=== PATIENT | male | born 1940 | race Caucasian/White ===

== ENCOUNTER 2018-06-29 12:15 | Inpatient (IN) | payer MEDICARE, OTHER ==
[~2018-06-29] VITALS: Ht 170.2 cm; Wt 62.1 kg
[2018-06-29 12:20] VITALS: Ht 170.2 cm; Wt 62.1 kg
[2018-06-29] MEDS ORDERED: MEGL ×2 (13:08→13:09)
[2018-06-29] MEDS ORDERED: NORCO1 TA2 PO (13:09)
[2018-06-29] MEDS ORDERED: ZOF4 PO (13:10)
[2018-06-29 13:11] LABS: BASOPHIL % 0.2 % (0-2); PLATELET COUNT 151 x10^3mcL (130-400)
[2018-06-29 13:14] LABS: CARBON DIOXIDE 29.6 mmol/L (21-32); CHLORIDE SERUM 100 mmol/L (98-107); CREATININE SERUM 0.8 mg/dL (0.7-1.3); GLUCOSE SERUM 154 mg/dL (74-106); POTASSIUM SERUM 4.3 mmol/L (3.5-5.1); SODIUM SERUM 134 mmol/L (136-145)
[2018-06-29 13:20] LABS: ALKALINE PHOSPHATASE 109 U/L (46-116); ALT/SGPT 31 U/L (16-63); AST/SGOT 34 U/L (15-37); BILIRUBIN TOTAL 0.77 mg/dL (0.20-1.00); CHOLESTEROL 181 mg/dL (<200); LIPASE 119 IU/L (73-393); TOTAL PROTEIN, SERUM 6.3 g/dL (6.4-8.2); TRIGLYCERIDES 138 mg/dL (<150)
[2018-06-29 13:25] LABS: ALBUMIN 2.5 g/dL (3.4-5.0); CHOLESTEROL/HDL RATIO 5.3; HDL CHOLESTEROL 34 mg/dL (40-60)
[2018-06-29 13:28] LABS: RED CELL DISTRIBUTION WIDTH 14.6 % (11.5-14.5)
[2018-06-29 13:30] LABS: FREE T4 1.25 ng/dL (0.76-1.46); FREE THYROXINE INDEX 3.9 ug/dL (1.4-4.5); T4(THYROXINE) 9.9 ug/dL (4.7-13.3)
[2018-06-29 14:02] LABS: T3 TOTAL 1.03 ng/mL
[2018-06-29 16:10] LABS: PHOSPHOROUS 5.1 mg/dL (2.5-4.9)
[2018-06-29 16:37] VITALS: BP 154/76
[2018-06-29 20:08] LABS: microscopic required? NO
[2018-06-29 20:34] LABS: urine erythrocyte NEGATIVE (NEGATIVE)
[2018-06-29 21:15] VITALS: BP 127/73
[2018-06-30 05:41] VITALS: BP 142/85
[2018-06-30 09:04] LABS: BASOPHIL % 0.4 % (0-2); PLATELET COUNT 152 x10^3mcL (130-400)
[2018-06-30 09:07] LABS: RED CELL DISTRIBUTION WIDTH 14.8 % (11.5-14.5)
[2018-06-30 09:15] LABS: CALCIUM 7.9 mg/dL (8.5-10.1); CARBON DIOXIDE 25.4 mmol/L (21-32); CHLORIDE SERUM 106 mmol/L (98-107); CREATININE SERUM 0.7 mg/dL (0.7-1.3); GLUCOSE SERUM 116 mg/dL (74-106); MAGNESIUM 2.4 mg/dL (1.8-2.4); PHOSPHOROUS 3.6 mg/dL (2.5-4.9); SODIUM SERUM 139 mmol/L (136-145)
[2018-06-30 09:30] VITALS: BP 134/81
[2018-06-30 17:19] VITALS: BP 162/89
[2018-06-30 21:02] VITALS: BP 137/77
[2018-07-01 05:42] VITALS: BP 138/79
[2018-07-01 06:26] LABS: BASOPHIL % 0.4 % (0-2); PLATELET COUNT 156 x10^3mcL (130-400)
[2018-07-01 06:27] LABS: CARBON DIOXIDE 28.3 mmol/L (21-32); CHLORIDE SERUM 107 mmol/L (98-107); CREATININE SERUM 0.7 mg/dL (0.7-1.3); GLUCOSE SERUM 92 mg/dL (74-106); MAGNESIUM 2.2 mg/dL (1.8-2.4); PHOSPHOROUS 2.6 mg/dL (2.5-4.9); POTASSIUM SERUM 4.5 mmol/L (3.5-5.1); SODIUM SERUM 140 mmol/L (136-145)
[2018-07-01 06:28] LABS: RED CELL DISTRIBUTION WIDTH 15.6 % (11.5-14.5)
[2018-07-01 09:40] VITALS: BP 136/81
[2018-07-01] MEDS ORDERED: COLACE100 MG PO (14:34)
[2018-07-01] MEDS ORDERED: METAMUCIL FIBE3.4 GM PO (14:36)
[2018-07-01 16:12] VITALS: BP 136/81
== END 2018-07-01 20:41 | disposition home or self-care (01) | DRG 391 ==
LOC: ED 12:15 → MU 15:24
PROVIDERS: Family Medicine; Specialist; ADMIT Internal Medicine
DX: K59.00 Constipation, unspecified (principal); E43 Unspecified severe protein-calorie malnutrition; E87.1 Hypo-osmolality and hyponatremia; C16.9 Malignant neoplasm of stomach, unspecified; D63.0 Anemia in neoplastic disease; I48.91 Unspecified atrial fibrillation; E86.0 Dehydration; Z68.21 Body mass index [BMI] 21.0-21.9, adult; Z87.891 Personal history of nicotine dependence; Z85.46 Personal history of malignant neoplasm of prostate
CPT/HCPCS: 82962; 83880; 84439; J7030; Q0092

== ENCOUNTER 2018-09-29 20:21 | Inpatient (IN) | payer MEDICARE, OTHER ==
[~2018-09-29] VITALS: Ht 177.8 cm; Wt 45.8 kg
[~2018-09-29 20:21] MED LIST: COLACE100 MG PO; MEGL; METAMUCIL FIBE3.4 GM PO; NORCO1 TA2 PO; ZOF4 PO
[2018-09-29 21:18] LABS: BASOPHIL % 0.1 % (0-2); PLATELET COUNT 227 x10^3mcL (130-400)
[2018-09-29 21:25] LABS: RED CELL DISTRIBUTION WIDTH 16.6 % (11.5-14.5)
[2018-09-29 21:49] LABS: CALCIUM 8.8 mg/dL (8.5-10.1); CHLORIDE SERUM 100 mmol/L (98-107); CREATININE SERUM 0.6 mg/dL (0.7-1.3); GLUCOSE SERUM 79 mg/dL (74-106); POTASSIUM SERUM 3.8 mmol/L (3.5-5.1); SODIUM SERUM 135 mmol/L (136-145)
[2018-09-29 21:55] LABS: ALKALINE PHOSPHATASE 130 U/L (46-116); ALT/SGPT 12 U/L (16-63); AST/SGOT 16 U/L (15-37); BILIRUBIN TOTAL 0.7 mg/dL (0.20-1.00)
[2018-09-29 21:56] LABS: TOTAL PROTEIN, SERUM 5.7 g/dL (6.4-8.2)
[2018-09-29] MEDS ORDERED: DRONABINOL PO (22:17)
[2018-09-29 23:37] LABS: CHOLESTEROL/HDL RATIO 3.5; MAGNESIUM 1.7 mg/dL (1.8-2.4); PHOSPHOROUS 3.5 mg/dL (2.5-4.9)
[2018-09-29 23:47] LABS: FREE T4 1.29 ng/dL (0.76-1.46); FREE THYROXINE INDEX 2.5 ug/dL (1.4-4.5); T4(THYROXINE) 6.8 ug/dL (4.7-13.3)
[2018-09-30] VITALS (9 sets, daily range): BP systolic 88–98; BP diastolic 44–62
[2018-09-30 00:29] LABS: T3 TOTAL 0.46 ng/mL
[2018-09-30 02:09] LABS: microscopic required? YES; urine erythrocyte 2+ (NEGATIVE)
[2018-09-30 06:51] LABS: CALCIUM 7.9 mg/dL (8.5-10.1); CARBON DIOXIDE 26.1 mmol/L (21-32); CHLORIDE SERUM 104 mmol/L (98-107); CREATININE SERUM 0.6 mg/dL (0.7-1.3); GLUCOSE SERUM 70 mg/dL (74-106); MAGNESIUM 1.6 mg/dL (1.8-2.4); POTASSIUM SERUM 3.4 mmol/L (3.5-5.1); SODIUM SERUM 138 mmol/L (136-145)
[2018-09-30 07:40] LABS: PLATELET COUNT 222 x10^3mcL (130-400)
[2018-09-30 11:36] LABS: ATYPICAL LYMPH 0 %; BAND NEUTROPHIL 56 % (0-10); MONOCYTE 8 % (0-7); SEGMENTED NEUTROPHILS 24 % (37-75)
[2018-09-30 11:37] LABS: BASOPHIL 0 % (0-2); PLATELET MORPHOLOGY PLATELETS DECREASED
[2018-09-30 12:41] LABS: rbc morphology (normal/abnorm) ABNORMAL (NORMAL)
[2018-09-30 13:30] LABS: PATH REVIEW for HEMA NO
[2018-10-01 05:22] VITALS: BP 107/65
[2018-10-01 07:11] LABS: PLATELET COUNT 232 x10^3mcL (130-400)
[2018-10-01 07:18] LABS: CARBON DIOXIDE 24.3 mmol/L (21-32); CHLORIDE SERUM 106 mmol/L (98-107); CREATININE SERUM 0.5 mg/dL (0.7-1.3); GLUCOSE SERUM 92 mg/dL (74-106); MAGNESIUM 1.8 mg/dL (1.8-2.4); PHOSPHOROUS 2.1 mg/dL (2.5-4.9); POTASSIUM SERUM 3.2 mmol/L (3.5-5.1); SODIUM SERUM 139 mmol/L (136-145)
[2018-10-01 08:00] LABS: RED CELL DISTRIBUTION WIDTH 16.2 % (11.5-14.5)
[2018-10-01 09:42] VITALS: BP 105/58
[2018-10-01 12:52] VITALS: BP 110/61
[2018-10-01 13:08] LABS: BAND NEUTROPHIL 47 % (0-10); MONOCYTE 8 % (0-7); SEGMENTED NEUTROPHILS 35 % (37-75); rbc morphology (normal/abnorm) ABNORMAL (NORMAL)
[2018-10-01 13:09] LABS: PLATELET MORPHOLOGY PLATELETS NORMAL; burr cell (echinocyte) 1+; ovalocyte/elliptocyte 1+
[2018-10-01 17:09] VITALS: BP 116/76
[2018-10-01 21:13] VITALS: BP 114/63
[2018-10-02 06:17] LABS: BASOPHIL % 0.1 % (0-2); PLATELET COUNT 250 x10^3mcL (130-400)
[2018-10-02 06:24] VITALS: BP 124/79
[2018-10-02 06:26] LABS: CALCIUM 7.9 mg/dL (8.5-10.1); CARBON DIOXIDE 27.2 mmol/L (21-32); CHLORIDE SERUM 108 mmol/L (98-107); CREATININE SERUM 0.5 mg/dL (0.7-1.3); GLUCOSE SERUM 87 mg/dL (74-106); PHOSPHOROUS 1.8 mg/dL (2.5-4.9); POTASSIUM SERUM 3.1 mmol/L (3.5-5.1); SODIUM SERUM 143 mmol/L (136-145)
[2018-10-02 06:41] LABS: RED CELL DISTRIBUTION WIDTH 16.6 % (11.5-14.5)
[2018-10-02 08:21] VITALS: BP 141/79
[2018-10-02] MEDS ORDERED: KLOR-CON M2020 MEQ PO (09:44)
[2018-10-02] MEDS ORDERED: LEVAQUIN750 MG PO (09:44)
[2018-10-02 12:14] VITALS: BP 142/80
[2018-10-02] MEDS ORDERED: IPRATROPIUM BROM3 M2 IH (12:44)
[2018-10-02 13:13] VITALS: BP 142/80
[2018-10-02 17:06] VITALS: BP 117/71
[2018-10-02 20:36] VITALS: BP 119/63
[2018-10-03 05:28] VITALS: BP 123/76
[2018-10-03 07:39] VITALS: BP 126/72
[2018-10-03 12:11] VITALS: BP 149/56
[2018-10-03 12:45] VITALS: BP 135/79
[2018-10-03 16:46] VITALS: BP 123/74
[2018-10-03 20:18] VITALS: BP 131/78
[2018-10-04 05:13] VITALS: BP 135/81
[2018-10-04 06:03] LABS: BASOPHIL % 0.2 % (0-2); PLATELET COUNT 265 x10^3mcL (130-400)
[2018-10-04 06:30] LABS: CALCIUM 7.9 mg/dL (8.5-10.1); CARBON DIOXIDE 27.3 mmol/L (21-32); CHLORIDE SERUM 106 mmol/L (98-107); CREATININE SERUM 0.5 mg/dL (0.7-1.3); GLUCOSE SERUM 67 mg/dL (74-106); POTASSIUM SERUM 3.1 mmol/L (3.5-5.1); SODIUM SERUM 143 mmol/L (136-145)
[2018-10-04 07:29] LABS: RED CELL DISTRIBUTION WIDTH 16.6 % (11.5-14.5)
[2018-10-04 09:07] VITALS: BP 124/72
[2018-10-04 12:58] VITALS: BP 135/83
[2018-10-04 17:02] VITALS: BP 129/82
[2018-10-04 21:09] VITALS: BP 130/72
[2018-10-05 05:01] VITALS: BP 132/81
[2018-10-05 06:29] LABS: BASOPHIL % 0.3 % (0-2); PLATELET COUNT 280 x10^3mcL (130-400)
[2018-10-05 06:41] LABS: CALCIUM 7.7 mg/dL (8.5-10.1); CARBON DIOXIDE 27.9 mmol/L (21-32); CHLORIDE SERUM 105 mmol/L (98-107); CREATININE SERUM 0.5 mg/dL (0.7-1.3); GLUCOSE SERUM 83 mg/dL (74-106); POTASSIUM SERUM 3.2 mmol/L (3.5-5.1); SODIUM SERUM 144 mmol/L (136-145)
[2018-10-05 06:58] LABS: RED CELL DISTRIBUTION WIDTH 16.3 % (11.5-14.5)
[2018-10-05 09:18] VITALS: BP 144/84
[2018-10-05 12:40] VITALS: BP 123/80
[2018-10-05 18:46] VITALS: BP 135/81
[2018-10-05 21:17] VITALS: BP 125/81
[2018-10-06 06:05] VITALS: BP 136/85
[2018-10-06 09:17] VITALS: BP 119/73
[2018-10-06 13:02] VITALS: BP 132/73
[2018-10-06 16:25] VITALS: Ht 177.8 cm; Wt 45.8 kg
[2018-10-06 18:11] VITALS: BP 128/72
[2018-10-06 20:50] VITALS: BP 122/62
[2018-10-07 05:48] VITALS: BP 129/82
[2018-10-07 06:29] LABS: ALKALINE PHOSPHATASE 76 U/L (46-116); ALT/SGPT 8 U/L (16-63); AST/SGOT 13 U/L (15-37); BILIRUBIN TOTAL 0.3 mg/dL (0.20-1.00); CALCIUM 7.5 mg/dL (8.5-10.1); CARBON DIOXIDE 35.7 mmol/L (21-32); CHLORIDE SERUM 103 mmol/L (98-107); CREATININE SERUM 0.4 mg/dL (0.7-1.3); GLUCOSE SERUM 100 mg/dL (74-106); POTASSIUM SERUM 3.1 mmol/L (3.5-5.1); SODIUM SERUM 142 mmol/L (136-145)
[2018-10-07 06:33] LABS: ALBUMIN 1.6 g/dL (3.4-5.0); TOTAL PROTEIN, SERUM 4.4 g/dL (6.4-8.2)
[2018-10-07 08:03] VITALS: BP 119/77
[2018-10-07 08:58] LABS: BASOPHIL % 0.3 % (0-2); PLATELET COUNT 257 x10^3mcL (130-400); RED CELL DISTRIBUTION WIDTH 16.9 % (11.5-14.5)
[2018-10-07 12:04] VITALS: BP 111/68
[2018-10-07 16:47] VITALS: BP 120/75
[2018-10-07 20:45] VITALS: BP 123/73
[2018-10-08 05:20] VITALS: BP 131/83
[2018-10-08 07:02] LABS: CALCIUM 7.9 mg/dL (8.5-10.1); CARBON DIOXIDE 31.1 mmol/L (21-32); CHLORIDE SERUM 104 mmol/L (98-107); CREATININE SERUM 0.3 mg/dL (0.7-1.3); GLUCOSE SERUM 102 mg/dL (74-106); POTASSIUM SERUM 4.1 mmol/L (3.5-5.1); SODIUM SERUM 140 mmol/L (136-145)
[2018-10-08 08:16] VITALS: BP 113/71
[2018-10-08 08:42] LABS: BASOPHIL % 0.2 % (0-2); PLATELET COUNT 240 x10^3mcL (130-400); RED CELL DISTRIBUTION WIDTH 16.9 % (11.5-14.5)
[2018-10-08 12:11] VITALS: BP 110/68
[2018-10-08 16:45] VITALS: BP 123/75
[2018-10-08 21:02] VITALS: BP 120/72
[2018-10-09 05:19] VITALS: BP 105/65
[2018-10-09 06:41] LABS: CALCIUM 7.8 mg/dL (8.5-10.1); CARBON DIOXIDE 33.3 mmol/L (21-32); CHLORIDE SERUM 103 mmol/L (98-107); CREATININE SERUM 0.4 mg/dL (0.7-1.3); GLUCOSE SERUM 101 mg/dL (74-106); POTASSIUM SERUM 4.3 mmol/L (3.5-5.1); SODIUM SERUM 137 mmol/L (136-145)
[2018-10-09 08:02] LABS: BASOPHIL % 0.4 % (0-2); PLATELET COUNT 239 x10^3mcL (130-400)
[2018-10-09 12:42] VITALS: BP 101/58
[2018-10-09 13:52] VITALS: BP 121/72
[2018-10-09 17:09] VITALS: BP 93/56
[2018-10-09 20:26] VITALS: BP 104/56
[2018-10-10 05:36] VITALS: BP 146/90
[2018-10-10 06:47] LABS: CALCIUM 8.3 mg/dL (8.5-10.1); CARBON DIOXIDE 29.2 mmol/L (21-32); CHLORIDE SERUM 102 mmol/L (98-107); CREATININE SERUM 0.5 mg/dL (0.7-1.3); GLUCOSE SERUM 107 mg/dL (74-106); MAGNESIUM 2.2 mg/dL (1.8-2.4); POTASSIUM SERUM 4.2 mmol/L (3.5-5.1); SODIUM SERUM 134 mmol/L (136-145)
[2018-10-10 06:58] LABS: BASOPHIL % 0.4 % (0-2); PLATELET COUNT 254 x10^3mcL (130-400); RED CELL DISTRIBUTION WIDTH 16.9 % (11.5-14.5)
[2018-10-10 09:09] VITALS: BP 140/80
[2018-10-10 13:02] VITALS: BP 124/80
[2018-10-10 18:38] VITALS: BP 98/56
[2018-10-10 19:20] VITALS: BP 98/56
[2018-10-10 20:45] VITALS: BP 121/67
[2018-10-11 05:05] VITALS: BP 143/66
[2018-10-11 08:16] VITALS: BP 126/66
[2018-10-11 10:40] LABS: CARBON DIOXIDE 27.7 mmol/L (21-32); CHLORIDE SERUM 103 mmol/L (98-107); CREATININE SERUM 0.5 mg/dL (0.7-1.3); GLUCOSE SERUM 105 mg/dL (74-106); POTASSIUM SERUM 4.2 mmol/L (3.5-5.1); SODIUM SERUM 135 mmol/L (136-145)
[2018-10-11 11:01] VITALS: BP 126/66
[2018-10-11 11:11] LABS: BASOPHIL % 0.4 % (0-2); PLATELET COUNT 261 x10^3mcL (130-400)
== END 2018-10-11 12:50 | DRG 871 ==
LOC: ED 20:21 → DU 22:43 → EDBEDREQ 22:58 → DU 23:37
PROVIDERS: Emergency Medicine; Family Medicine; ADMIT Internal Medicine
PROC: 0DJ08ZZ Inspection of Upper Intestinal Tract, Via Natural or Artificial Opening Endoscopic (ICD-10-PCS; 2018-10-05)
PROC: 0DHA3UZ Insertion of Feeding Device into Jejunum, Percutaneous Approach (ICD-10-PCS; principal; 2018-10-06)
DX: A41.9 Sepsis, unspecified organism (principal); J69.0 Pneumonitis due to inhalation of food and vomit; N17.0 Acute kidney failure with tubular necrosis; E43 Unspecified severe protein-calorie malnutrition; C16.2 Malignant neoplasm of body of stomach; Z68.1 Body mass index [BMI] 19.9 or less, adult; E87.2 Acidosis; I47.1 Supraventricular tachycardia; R64 Cachexia; E87.6 Hypokalemia; E83.39 Other disorders of phosphorus metabolism; E83.42 Hypomagnesemia; I10 Essential (primary) hypertension; Z92.3 Personal history of irradiation; Z79.899 Other long term (current) drug therapy; Z85.46 Personal history of malignant neoplasm of prostate
CPT/HCPCS: 36600; 43235; 82962; 84439; 92526-GN; 92610; 97110-GP; 97530-GP; J0330; J1200; J1610; J1644; J1940; J1956; J2060; J2250; J2270; J2310; J2405; J2543; J2704; J2710; J2765; J3010; J3475; J3480; J3490; J7030; J7050; J7131; J7620; Q0092; Q9967

== ENCOUNTER 2018-11-04 20:33 | Inpatient (IN) | payer MEDICARE, OTHER ==
[~2018-11-04] VITALS: Ht 170.2 cm; Wt 42.3 kg
[~2018-11-04 20:33] MED LIST changes: +DRONABINOL PO; +IPRATROPIUM BROM3 M2 IH; +KLOR-CON M2020 MEQ PO; +LEVAQUIN750 MG PO
--- NOTE | 2018-11-04 20:58 | NUR ---
PATIENT WAS BROUGHT IN BY THE AMBULANCE WITH COMPLAIN OF G-TUBE BEING CLOGGED. FAMILY REPORTS ABDOMINAL PAIN , AND HISTORY OF STOMACH CANCER.PATIENT WAS SEEN BY .
[2018-11-04 21:05] LABS: BASOPHIL % 0.3 % (0-2); PLATELET COUNT 431 x10^3mcL (130-400); RED CELL DISTRIBUTION WIDTH 18.1 % (11.5-14.5)
[2018-11-04 21:16] LABS: CALCIUM 8.7 mg/dL (8.5-10.1); CARBON DIOXIDE 31.7 mmol/L (21-32); CHLORIDE SERUM 96 mmol/L (98-107); CREATININE SERUM 0.7 mg/dL (0.7-1.3); GLUCOSE SERUM 103 mg/dL (74-106); POTASSIUM SERUM 5.3 mmol/L (3.5-5.1); SODIUM SERUM 135 mmol/L (136-145)
[2018-11-04 21:20] LABS: ALKALINE PHOSPHATASE 110 U/L (46-116); ALT/SGPT 22 U/L (16-63); AST/SGOT 15 U/L (15-37); BILIRUBIN TOTAL 0.47 mg/dL (0.20-1.00); LIPASE 39 IU/L (73-393); TOTAL PROTEIN, SERUM 6.6 g/dL (6.4-8.2)
[2018-11-04 21:21] LABS: ALBUMIN 1.9 g/dL (3.4-5.0)
--- NOTE | 2018-11-04 21:43 | NUR ---
SALINE LOCK INSERTED. FLUID BOLUS IS INFUSING.TRIED TO FLUSH GT TUBE, CANNOT ASPIRARTE, TUDE DOES NOT FLUSH.
--- NOTE | 2018-11-04 22:01 | NUR ---
PATIENT WENT FOR CT SCAN
--- NOTE | 2018-11-04 22:30 | NUR ---
CT CALL THAT THE PATIENT IS VOMITING. CT WAS DONE. PATIENT SEEN VOMITING GREEN OFFENSIVE SMELLING FLUID. MD AWARE.
--- NOTE | 2018-11-04 22:33 | NUR ---
PATIENT WENT BACK TO THE ROOM FROM CT SCAN.
--- NOTE | 2018-11-04 23:00 | NUR ---
PATIENT IS GAGING, HAS A RAPID HEART RATE, EKG SHOWING SVT. ADENOSINE 6 IVP. HEART RATE WENT TO 100. PATIENT IS A/O TALKING.
[2018-11-04] MEDS ORDERED: AMBIEN10 MG PO (23:30)
[2018-11-04] MEDS ORDERED: BACTRIM DS1 TAB PO (23:31)
[2018-11-04] MEDS ORDERED: DULCOLAX10 M1 (23:32)
[2018-11-04] MEDS ORDERED: FLEET ENEMA135 ML (23:32)
--- NOTE | 2018-11-04 23:33 | NUR ---
PT BROUGHT TO 2B PT IN POSSIBLE SVT. PT GIVEN ADENOSINE 6MG 2320. PT TOLERATED WELL. HR93. WAS AT BEDSIDE. VSS. WILL CONTINUE TO MONITOR.
[2018-11-04] MEDS ORDERED: GLYCOPYRROLATE1 M1 PO (23:34)
[2018-11-04] MEDS ORDERED: GOOD NEIGH1200 MG/15 GT (23:36)
[2018-11-04] MEDS ORDERED: [UNRECOGNIZED DRUG - OTHER] (23:38)
--- NOTE | 2018-11-04 23:50 | NUR ---
REPORT WAS GIVEN TO PRETTY. PATIENT TRANSPORTED TO ROOM 223B. SALINE INFUSING ORDERED.
[2018-11-05] VITALS (8 sets, daily range): BP systolic 104–136; BP diastolic 48–72
--- NOTE | 2018-11-05 00:15 | NUR ---
RECEIVED PT FROM ED VIA [facility], CAME IN DUE TO CLOGGED J-TUBE. AAOX3. DENIES HEADACHE/DIZZINESS. ABLE TO FOLLOW COMMANDS. NO SOB NOTED, LUNG SOUNDS DIMINISHED ON AUSCULTATION, O2 CRV=514% ON 2LPM/NC. W/ PRODUCTIVE COUGH, ABLE TO EXPECTORATE SMALL AMOUNT OF YELLOW PHLEGM. DENIES CHEST PAIN/PRESSURE, SR W/ PAC'S. DENIES ABDOMINAL DISCOMFORT. W/ ICELANDIC 20 J-TUBE,CLAMPED, SAMUEL-WOUND IS PINK. W/ ECCHYMOSIS ON LUE AND LEFT CHEST, BREAST PULLER. W/ BROWN DISCOLORATION ON THE SACRAL-COCCYGEAL AREA, OPTIFOAM IN PLACE. W/ PORTACATH ON THE RIGHT UPPER CHEST, NOT ACCESSED AT THIS TIME. ON AIR MATTRESS. SIDE RAILS UPX2. CALL LIGHT ON REACH. RECEIVED PT FROM ED W/ NS AND MAGNESIUM SULFATE ONGOING. PT'S SON AT BEDSIDE. ENDORSED TO PRIMARY NURSE PRETTY FOR CONTINUITY OF CARE
[2018-11-05 00:26] LABS: microscopic required? NO
[2018-11-05 00:53] LABS: urine erythrocyte NEGATIVE (NEGATIVE)
--- NOTE | 2018-11-05 01:50 | NUR ---
J TUBE SITE PINK AND PAINFUL TRY TO FLUSH THE J TUBE NO WORKING,CLOG,WILL CONTUINUE TO MONITOR.
--- NOTE | 2018-11-05 02:07 | NUR ---
PT SLEEPING SOUNDLY AT THIS TIME,WILL CONTINUE TO MONITOR.
[2018-11-05 02:11] LABS: CHOLESTEROL/HDL RATIO 3.7; PHOSPHOROUS 4.4 mg/dL (2.5-4.9)
--- NOTE | 2018-11-05 02:16 | NUR ---
PT RESTING AT THIS TIME,HR TO 130 AND AND IN AND OUT JUCTIONAL AND NSR WITH PACS NO CHEST PAIN AT THIS TIME,WILL CONTINUE TO MONITOR.
--- NOTE | 2018-11-05 02:33 | NUR ---
MADE DR CUMMINGS AWARE OF PATIENT HR ST 130,AND GOES TO NSR PACS NO CHEST PAIN AT THIS TIME.
--- NOTE | 2018-11-05 06:27 | NUR ---
PT HAD A RESTING NIGHT NO CHANGE AT THIS TIME,CALL LIGHT EASY REACHED AND WILL CONTINUE TO MONITOR.
[2018-11-05 06:58] LABS: BASOPHIL % 0.3 % (0-2)
[2018-11-05 07:05] LABS: PLATELET COUNT 409 x10^3mcL (130-400); RED CELL DISTRIBUTION WIDTH 18.1 % (11.5-14.5)
[2018-11-05 07:08] LABS: CALCIUM 8.4 mg/dL (8.5-10.1); CARBON DIOXIDE 27.3 mmol/L (21-32); CHLORIDE SERUM 102 mmol/L (98-107); CREATININE SERUM 0.6 mg/dL (0.7-1.3); GLUCOSE SERUM 99 mg/dL (74-106); POTASSIUM SERUM 4.5 mmol/L (3.5-5.1); SODIUM SERUM 137 mmol/L (136-145)
--- NOTE | 2018-11-05 07:30 | NUR ---
PT ENDORSE TO ME THIS MORNING. LAYING IN BED RESTING. FAMILY MEMBER AT BEDSIDE. ITALIAN SPKING. BREATHING EVEN AND UNLABORED ON 2L NC, LUNGS DIM. NO ACUTE RESP DISTRESS OR SOB NOTED. TELE 28 SR NOTED AT THIS TIME, HR 86, DENIES ANY CP OR PRESSURE. J TUBE IN PLACE, CURRENTLY CLAMPED AND NOT IN USE. PT IS NPO PENDING GI CONSULT. VOIDS FREELY. GEN WEAKNESS. SKIN AROUND J TUBE PINK NOTED WITH BROWN DISCOLORATION. IV TO THE LAC INTACT AND PATENT, NO RENDESS OR SWELLING NOTED. WILL CONTINUE TO MONITOR.
--- NOTE | 2018-11-05 08:34 | NUR ---
DR. LINTON AT BEDSIDE TALKING TO FAMILY AND PT. PT C/O NV, MEDICATED PER EMAR. WILL CONTINUE TO MONITOR.
--- NOTE | 2018-11-05 09:17 | NUR ---
GI LAB HERE TO [facility]UT[facility] ARCHITECT CONSULTANT PT. CURRENT VS 115/66 MAP 88, 85 HR, RESP 16, TEMP 98.4 DENIES ANY CP OR PRESSURE. HEPLOCKED IV TO THE LAC INTACT AND PATENT. WILL CONTINUE TO MONITOR PT ONCE RETURNS FROM PROCEDURE.
--- NOTE | 2018-11-05 11:45 | NUR ---
PT BACK FROM GI LAB/ REPORT GIVEN TO ME BY RN CYNTHIA. CURRENT VS: 101/61 MAP 79, HR 90, RESP 17, 100% 2L NC NO ACUTE RESP DISTRESS OR SOB NOTED. RECONNECTED BACK ON TELE 28, DENIES ANY CP OR PRESSURE. IV TO THE LAC INTACT AND PATENT, INFUSING AT 100ML HR. FAMILY AT BEDSIDE.
--- NOTE | 2018-11-05 13:00 | NUR ---
STARTED J TUBE FEEDING AT 1300 AT 30ML/HR INITAL RATE. PT TOLERATING WELL. WILL CONTINUE TO MONITOR.
--- NOTE | 2018-11-05 17:00 | NUR ---
AT 1700 REMOVED PT OFF 02, SAT AT 92%, MARIAELENA 02 SAT 30 MIN LATER WAS 89% - 90%, PT NOW BACK ON 1 L NC SATING AT 94%. WILL CONTINUE TO MONITOR.
--- NOTE | 2018-11-05 18:41 | NUR ---
NO ACUTE CHANGES AT THIS TIME. NO ACUTE RESP DISTRESS OR SOB NOTED. REMAINS ON 1L NC SATING 94% BREATHING EVEN AND UNLABORED. J TUBE CURRENTLY AT 30ML/HR TOLERATING WELL/ DENIES ANY N/V , MEDICATED PER EAMR. IV TO THE LAC INTACT AND PATENT. WILL ENDORSE TO INCOMING RN.
--- NOTE | 2018-11-05 19:15 | NUR ---
RECEIVED PT FROM PREVIOUS SHIFT NURSE. PT AOX4. DENIES AVELAR/DIZZINESS. TELE #28, NSR WITH PACS. DENIES CP/PRESSURE. DENIES SOB/DIFFICULTY BREATHING, ON 1L NC. J TUBE IN PLACE CONNECTED TO JEVITY INFUSING AT 30ML/H. IV TO LAC, INTACT AND PATENT. BED IN LOWEST POSITION. CALL LIGHT WITHIN REACH. WILL CONTINUE TO MONITOR.
--- NOTE | 2018-11-05 21:45 | NUR ---
LARGE AMOUNT OF YELLOW BILE LOOKING DRAINAGE NOTED AT J TUBE SITE, DSG CHANGED. DR. LINTON NOTIFIED.
--- NOTE | 2018-11-06 03:30 | NUR ---
PT RESTING IN BED. RR EVEN AND UNLABORED. IN NO ACUTE DISTRESS. CALL LIGHT WITHIN REACH. BED IN LOWEST POSITION. WILL CONTINUE TO MONITOR.
--- NOTE | 2018-11-06 05:12 | NUR ---
J TUBE DSG HEAVILY SATURATED WITH YELLOW BILE LIKE DRAINAGE AND WHAT APPEARS TO BE TUBE FEED. DSG CHANGED.
[2018-11-06 05:44] VITALS: BP 158/74
[2018-11-06 06:29] LABS: BASOPHIL % 0.3 % (0-2); PLATELET COUNT 390 x10^3mcL (130-400)
[2018-11-06 06:54] LABS: RED CELL DISTRIBUTION WIDTH 17.5 % (11.5-14.5)
[2018-11-06 06:58] LABS: CALCIUM 8.3 mg/dL (8.5-10.1); CARBON DIOXIDE 30.1 mmol/L (21-32); CHLORIDE SERUM 106 mmol/L (98-107); CREATININE SERUM 0.5 mg/dL (0.7-1.3); GLUCOSE SERUM 114 mg/dL (74-106); MAGNESIUM 2.3 mg/dL (1.8-2.4); PHOSPHOROUS 3.3 mg/dL (2.5-4.9); POTASSIUM SERUM 4.1 mmol/L (3.5-5.1); SODIUM SERUM 141 mmol/L (136-145)
--- NOTE | 2018-11-06 07:45 | NUR ---
PATIENT RESTING IN BED, NO ACUTE DISTRESS NOTED. TELE MONITOR IN PLACE. PATIENT DENEIS AVELAR, DIZZINESS, CHEST PAIN. PATIENT ON 1L NC, DENIES SOB. JTUBE DRESSING IS SATURATED TO LUQ, DRESSING CHANGED AT THIS TIME. PATIENT TOLERATING TUBE FEEDINGS, JEVITY 1.2 INFUSING AT 30ML/HR WITH FWF 30ML Q6. WILL ADVANCE TUBE FEEDING AT 1300. BOWEL SOUND HYPOACTIVE, PATIENT IS BURPING AND PASSING GAS. PATIENT ON AIR MATRESS. NS IV TO LAC INFUSING AT 100ML/HR, IV SITE CDI & PATENT, NO S/S OF INFILTRATION. CALL LIGHT WITHIN REACH, BED IN LOW POSITION, WILL CONTINUE TO MONITOR FOR CHANGES.
[2018-11-06 09:42] VITALS: BP 113/71
--- NOTE | 2018-11-06 12:00 | NUR ---
DRAINAGE WAS NOTED AROUND THE JTUBE, PROVIDED PATIENT WITH A DRESSING CHANGE. WILL CONTINUETO MONITOR AND CHANGE NEEDED, DR LINTON AWARE
[2018-11-06 13:07] VITALS: BP 99/57
--- NOTE | 2018-11-06 13:30 | NUR ---
PATIENT TOLERATING TUBE FEEDINGS, ADVANCED TUBE FEEDING ( JEVITY 1.2) TO 40ML/HR. WILL CONTINUE TO MONITOR FOR CHANGES.
--- NOTE | 2018-11-06 14:33 | NUR ---
Initial Nutrition Assessment: 223T/B FERMIN KHAN IA HR Dx: J tube malfunction , atrial tachycardia PMHx: Gastric cancer, Prostate cancer s/p radiation currently in remission PSHx: Hernia Repair Labs: BG 114H, CREAT 0.5, CA 8.3L Meds: Ambien, citrate of magnesia, Lopressor, zosyn Diet: TF Jevity 1.2 @ 30ml/hr, goal 60ml/hr, freq of adv Q12H, FWF 30ml Q6H PO Intake: 450 ml Ht: 170.18 cm (67") Wt: 42.8 kg (94#) BMI: 14.8 kg/m2 Bed scale: 92# IBW: 148# (67 kg) %IBW: 63 UBW: 200# Age: 78/M Food Allergies: NKFA Skin: brown discoloration to sacrum, chest ecchymosis, port A cath to chest Eron: 16 Edema: none GI: Last BM: 11/04 Trigger: appears underweight/malnourished Per H&P, Pt is a 78 year old male with PMH of gastric cancer diagnosed in January 2018 and prostate cancer in remission who was brought to the ER by ambulance from home with complaints of abdominal pain and possible G-tube malfunction. Patient states that his G-tube has been clogged since this morning and he has been unable to receive anything through it. RDN Visit (11/06): Pt was sleeping. Pt's son was at bedside. Jevity 1.2 was increased from 30ml/hr to 40ml/hr. Pt's son had concerns about pt's cachectic appearance and that despite of continuing tube feedings, pt;s weight has not increased. Concept of cancer cachexia was explained and he was reassured that pt's tube feeding goal rate will be meeting >75% of his estimated calorie and protein needs. Problem with: N/V/D/C: yes Problems with: Chewing/Swallowing: yes Current appetite: poor Recent wt change: 6# in one month %wt change: 6% Vitamin/Supplement use: none Special diet at home: pt on tube feeding Physical activity: not possible as pt is cachectic and emaciated Nutrition education given: not appropriate at this time as pt is on tube feeding. Food-drug interactions: Lopressor- avoid licorice Education given: no as pt is tube feeding dependent Estimated Nutritional Needs Based on actual body weight 42.8 kg Energy: 4877-8912 kcal/d (35-40 kcal/kg)- weight gain Protein: 51-64 g/d (1.2-1.5g/kg)- preserve LBM Fluid: 3883-8948 ml/d (1 ml/kcal) or per doctor Nutrition Diagnosis 1. 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 Recommend continuing Jevity 1.2 @ goal rate of 60ml/hr. FWF 30ml Q6H. This provides 1728 kcal and 80g protein. This meets 100% of calorie and protein needs of the patient. Monitor/Evaluate Goal: PO intake at least 75% of estimated needs Monitor: PO intake, Labs, GI function F/U in 2-3 days as high risk 11/08-
--- NOTE | 2018-11-06 16:15 | NUR ---
PT DRESSING TO JTUBE WAS SATURATED, PROVIDED PATIENT WITH DRESSING CHANGE AT THIS TIME. PATIENT STATES HE HAS MILD PAIN 07/12 BUT TOLERABLE. EDUCATED PATIENT ON PAIN MANAGEMENT. WILL CONTINUE TO MONITOR FOR CHANGES. CALL LIGHT WITHIN REACH, BED IN LOW POSITION.
[2018-11-06 17:11] VITALS: BP 143/60
--- NOTE | 2018-11-06 18:26 | NUR ---
PATIENT RESTING IN BED, FAMILY AT BEDSIDE. NO ACUTE DISTRESS NOTED AT THIS TIME. TELE MONITOR IN PLACE. PATIENT ON 1L NC, DENIES SOB. JTUBE DRESSING CDI, JEVITY 1.2 INFUSING AT 40ML/HR, PATIENT TOLERATING TUBE FEEDINGS. PATIENT ON AIR MATRESS, REPOSITION Q2HR. DENIES PAIN AT THIS TIME. NS IV INFUSING AT 30ML/HR TO LAC, IV SITE CDI& PATENT, NO S/S OF INFILTRATION. CALL LIGHT WITHIN REACH, BED IN LOW POSITION. WILL ENDORSE REPORT TO NIGHT NURSE.
--- NOTE | 2018-11-06 19:58 | NUR ---
Awake and verbally responsive. No respiratory distress noted on room air. Denies pain. Denies n/v. Jtube feeding Jevity 1.2 ongoing @ 40ml/hr. Will advance rate by 10ml every 12hr to reach the goal of 60ml/hr. Jtube site leaking with formula. aware per morning RN. Will cont.to monitor and change dressing prn. On air mattress. Family member visiting.
[2018-11-06 21:48] VITALS: BP 112/70
--- NOTE | 2018-11-07 01:00 | NUR ---
Advanced tube feeding rate to 50ml/hr. Will cont.to monitor.
--- NOTE | 2018-11-07 04:00 | NUR ---
Afebrile. No significant change in condition noted. No cues of pain. JTube feeding tolerated well. No n/v noted. No residual noted. Site still with leakage, drain gauze changed. Erythema noted to surrounding site. Kept skin clean and dry. Kept comfortable. In no apparent distress.
[2018-11-07 06:27] VITALS: BP 118/74
[2018-11-07 06:55] LABS: BASOPHIL % 0.6 % (0-2); PLATELET COUNT 407 x10^3mcL (130-400); RED CELL DISTRIBUTION WIDTH 17.7 % (11.5-14.5)
[2018-11-07 07:06] LABS: CALCIUM 8.1 mg/dL (8.5-10.1); CARBON DIOXIDE 35.6 mmol/L (21-32); CHLORIDE SERUM 106 mmol/L (98-107); CREATININE SERUM 0.5 mg/dL (0.7-1.3); GLUCOSE SERUM 111 mg/dL (74-106); MAGNESIUM 2.3 mg/dL (1.8-2.4); PHOSPHOROUS 2.5 mg/dL (2.5-4.9); POTASSIUM SERUM 4.1 mmol/L (3.5-5.1); SODIUM SERUM 142 mmol/L (136-145)
--- NOTE | 2018-11-07 07:50 | NUR ---
PATIENT RESTING IN BED, NO ACUTE DISTRESS NOTED. PATIENT DENIES SOB, ON 1L NC. TELE MONITOR IN PLACE. PATIENT DENIES N/V AT THIS TIME. TUBE FEEDING (JEVITY 1.2) INFUSING AT 50 ML/HR. GENERALIZED WEAKNESS NOTED. NS IV INFUSING AT 30 ML/HR TO RFA. CALL LIGHT WITHIN REACH, BED IN LOW POSITION, WILL CONTINUE TO MONITOR PATIENT.
[2018-11-07 08:20] VITALS: BP 109/70
--- NOTE | 2018-11-07 09:00 | NUR ---
PATIENT WAS C/O NAUSEA, MEDICATED PATIENT WITH ZOFRAN. WILL CONTINUE TO MONITOR PATEINT. CALL LIGHT WITHIN REACH, BED IN LOW POSITION.
[2018-11-07 12:54] VITALS: BP 118/72
--- NOTE | 2018-11-07 13:00 | NUR ---
INCREASED PATIENT TUBE FEEDING AT THIS TIME, PATIENT MET GOAL OF 60ML/HR. WILL MONITOR FOR CHANGES. PATIENT DENIES N/V AT THIS TIME. CALL LIGHT WITHIN REACH, BED IN LOW POSITION.
--- NOTE | 2018-11-07 14:00 | NUR ---
PATIENT DRESSING AROUND J TUBE WAS SOILED, PROVIDED PATIENT WITH DRESSING CHANGE. WILL CONTINUE TO MONITOR.
[2018-11-07 17:00] VITALS: BP 131/76
--- NOTE | 2018-11-07 18:00 | NUR ---
PATIENT RESTING IN BED, FAMILY AT BEDSIDE. NO ACUTE DISTRESS NOTED. PATIENT STATES SOME RELIEF OF THE NAUSEA. PATIENT DENIES PAIN. DENIES SOB, PT ON ROOM AIR. TUBE FEEDING INFUSING (JEVITY 1.2) INFUSING AT 60ML/HR, PATIENT TOLERATING TUBE FEEDING. ZOSYN INFUSING AT THIS TIME AT 100ML/HR TO RFA, IV SITE CDI, NO S/S OF INFILTRATION. CALL LIGHT WITHIN REACH, BED IN LOW POSITION. WILL ENDORSE REPORT TO NIGHT NURSE.
--- NOTE | 2018-11-07 19:53 | NUR ---
RECEIVED PATIENT IN BED AWAKE,ALERT AND ORIENTED X4 WITH NO C/O PAIN AND DISCOMFORT AT THIS TIME. BREATHING EASY AND NONLABOR SATTING AT 98% RA. TELE#28 NSR/ST ON MONITOR. ABDOMEN ROUND SOFT AND NONTENDER WITH ACTIVE BS. J TUBE TO LEFT UPPER QUADRANT IN PLACEWITH JEVITY 1.2 FEEDING AT 60ML/HR WITH FWF OF 60ML Q 6HRS. IV TO RFA INTACT AND INFUSING WELL.WILL CONTINUE TO MONITOR.
[2018-11-07 21:06] VITALS: BP 125/73
--- NOTE | 2018-11-08 02:46 | NUR ---
APPEARS SLEEPING THIS TIME BREATHING EASY AND NONLABOR. WILL CONTINUE TO MONITOR.
[2018-11-08 05:32] VITALS: BP 116/75
--- NOTE | 2018-11-08 05:52 | NUR ---
NO SIGNIFICANT CHANGES IN CONDITION NOTED. CHECKED AT INTERVALS FOR NEEDS AND SAFETY. ALL NEEDS ATTENDED.
[2018-11-08 07:15] LABS: BASOPHIL % 0.6 % (0-2); PLATELET COUNT 384 x10^3mcL (130-400)
[2018-11-08 07:18] LABS: RED CELL DISTRIBUTION WIDTH 17.6 % (11.5-14.5)
[2018-11-08 07:20] LABS: CALCIUM 8.2 mg/dL (8.5-10.1); CARBON DIOXIDE 34.4 mmol/L (21-32); CHLORIDE SERUM 104 mmol/L (98-107); CREATININE SERUM 0.5 mg/dL (0.7-1.3); GLUCOSE SERUM 87 mg/dL (74-106); MAGNESIUM 2.4 mg/dL (1.8-2.4); PHOSPHOROUS 3.1 mg/dL (2.5-4.9); POTASSIUM SERUM 4.3 mmol/L (3.5-5.1); SODIUM SERUM 141 mmol/L (136-145)
--- NOTE | 2018-11-08 07:30 | NUR ---
RECEIVED PATIENT A/A/OX4; JAPANESE SPEAKING. CACHECTIC. HX OF GASTRIC CA AND PROSTATE CA. LAST CHEMO WAS 1 1/2 MONTHES AGO. C/O NAUSEA. NPO . ON J TUBE FEEDING. JEVITY 1.2 60CC/HR W/ WATER 30CC/Q6H. RESIDUAL =0. J TUBE SITE TO LUQ ABD WITH SMALL YELLOWISH LEAKING. REDNESS TO J-TUBE SITE W/ OPENED WOUND TO 5 OCLOCK. WOUND CARE GIVEN AND DRSG CHANGED. IVF OF NS 30CC/HR TO RAC. IV SITE CLEAN. DENIED PAIN NOW. GENERAL WEAKNESS. TOTAL CARE NEEDED. CALL LIGHT IN REACH. SON AT BED SIDE.
[2018-11-08 09:32] VITALS: BP 100/67
[2018-11-08 12:52] VITALS: BP 126/73
--- NOTE | 2018-11-08 15:42 | NUR ---
C/O NAUSEA. ZOFRAN 4MG IVP GIVEN. CONTINUE MONITOR.
--- NOTE | 2018-11-08 16:10 | NUR ---
[facility] REPORTED PATIENT'S J TUBE SITE WOUND CULTURE WAS PRESUMPTIVE MRSA. CONTACT ISOLATION PER PROTOCOL. DR. MAURO WOUND BE NOTIFIED.
[2018-11-08 17:06] VITALS: BP 111/58; BP 124/72
--- NOTE | 2018-11-08 18:47 | NUR ---
TOLERATED J TUBE FEEDING. HAD LARGE BM X1 THIS SHIFT. URINE INCONT. CHANGED X3. SCANT DRAIANGE FRON J T SITE. DRSG CHANGED. CONTACT ISOLATION IN PLACE. ENDROSED CARE TO [facility] NURSE.
--- NOTE | 2018-11-08 19:10 | NUR ---
RECEIVED PT IN BED RESTING WITH AT BEDSIDE.NO ACUTE RESPIRATORY DISTRESS NOTED. J TUBE INFUSING @ 60ML/HR.AIRMATTRESS IN PLACED. SKIN ARE INTACT. IV SITE PATENT AND INTACT. BED IN LOWEST POSITION,CALL LIGHT WITHIN REACH. WILL CONTINUE TO MONITOR.
[2018-11-08 21:30] VITALS: BP 127/71
--- NOTE | 2018-11-09 05:16 | NUR ---
PT ASLEEP BUT EASILY AROUSABLE.NO DISTRESS NOTED.NO INDICATION OF PAIN. BED IN LOWEST POSITION,CALL LIGHT WITHIN REACH. WILL CONTINUE TO MONITOR.DAUGHTER AT BEDSIDE.
[2018-11-09 05:27] VITALS: BP 128/74
[2018-11-09 06:21] LABS: BASOPHIL % 0.5 % (0-2); PLATELET COUNT 379 x10^3mcL (130-400)
[2018-11-09 06:33] LABS: RED CELL DISTRIBUTION WIDTH 17.3 % (11.5-14.5)
[2018-11-09 06:34] LABS: CALCIUM 8.1 mg/dL (8.5-10.1); CHLORIDE SERUM 104 mmol/L (98-107); CREATININE SERUM 0.6 mg/dL (0.7-1.3); GLUCOSE SERUM 94 mg/dL (74-106); MAGNESIUM 2.2 mg/dL (1.8-2.4); PHOSPHOROUS 3.1 mg/dL (2.5-4.9); POTASSIUM SERUM 4.5 mmol/L (3.5-5.1); SODIUM SERUM 140 mmol/L (136-145)
--- NOTE | 2018-11-09 07:20 | NUR ---
CARE ENDORSED TO DAY NURSE JERI.
--- NOTE | 2018-11-09 07:20 | NUR ---
RECEIVED PT FROM DBAS RN. Channing/KENNETH. TELE#28. DENIES CHEST PAIN/PRESSURE. RESPIRATIONS EQUAL AND UNLABORED ON RA. DENIES SOB AT THIS TIME. TUBE FEEDINGS RUNNING AT 60 ML/HR WITH H20 FLUSH OF 30 ML/HR Q6HR. NO DRAINAGE OR SWELING NOTED. NO RESIDUAL VOLUME NOTED. IV PATENT AND INFUSING TO RW. NO REDNESS OR SWELLIN NOTED. WILL CONTINUE TO MONITOR. CALL LIGHT IN REACH. BED IN LOWEST POSITION.
--- NOTE | 2018-11-09 10:24 | NUR ---
PT SITTING UP IN BED. NO ACUTE RESP DISTRESS NOTED ON RA. DENIES SOB. IV PATENT AND INFUSING. NO REDNESS OR SWELLING NOTED. IV ANTIBIOTICS INFUSING ORDERED. PT STATES HE DOES NOT LIKE TAKING REGLAN, PT STATES IT MAKES HIM FEEL REALLY DROWSY AND NOT HIMSELF. MEDICATIONS GIVEN VIA J-TUBE, NO RESIDUAL VOLUME NOTED. FEEDINGS RUNNING AT 60ML/HR WITH FLUSH 30 ML Q6HR. DANISHA PHYSCIAL THERAPIST AT BEDSIDE FOR EVALUATION, NICK ARGUETA. WILL CONTINUE TO MONITOR. CALL LIGHT IN REACH. BED IN LOWEST POSITION.
[2018-11-09 10:29] VITALS: BP 110/67
[2018-11-09 11:38] VITALS: Ht 170.2 cm; Wt 42.3 kg
[2018-11-09] MEDS ORDERED: MERREM IV1 GM INJ (13:18)
[2018-11-09] MEDS ORDERED: NOVAPLUS ZYVO2 MG/ML IV (13:18)
[2018-11-09 13:43] VITALS: BP 117/73
--- NOTE | 2018-11-09 14:50 | NUR ---
Follow-up Nutrition Assessment: 223T/B FERMIN KHAN IA HR Dx: J tube malfunction , atrial tachycardia PMHx: Gastric cancer, Prostate cancer s/p radiation currently in remission Labs: (11/09): CREAT 0.6L, CA 8.1L, Meds: Ambien, citrate of magnesia, Lopressor, zosyn Diet: TF Jevity 1.2 @ 60ml/hr, FWF 30ml Q6H TF Intake: 1500 ml Weights: 42 kg Skin: BUE/Chest ecchymosis Eron: 16 I/Os: (1540) Edema: none GI: Last BM: 11/08/18 RDN Visit (11/09): Pt was alert and oriented with family members at bedside. Pt looks malnourished and emaciated. FNS received consult for TF recommendation/education". Family or the patient did not have any questions regarding tube feedings at this time. Estimated Nutritional Needs Based on actual body weight 42.8 kg Energy: 7178-8552 kcal/d (35-40 kcal/kg)- weight gain Protein: 51-64 g/d (1.2-1.5g/kg)- preserve LBM Fluid: 5653-3047 ml/d (1 ml/kcal) or per doctor Nutrition Diagnosis 1. 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 (ongoing) Intervention 1. Recommend continuing Jevity 1.2 @ goal rate of 60ml/hr. FWF 30ml Q6H. This provides 1728 kcal and 80g protein. This meets 100% of calorie and protein needs of the patient. Monitor/Evaluate Goal: Have pt meet at least 75% of estimated needs Monitor: PO intake, Labs, GI function F/U in 2-3 days as high risk 11/11-
[2018-11-09 14:54] VITALS: BP 117/73
--- NOTE | 2018-11-09 15:15 | NUR ---
REPORT WAS GIVEN TO BREE ROMERO AT [facility]
[2018-11-09 16:49] VITALS: BP 133/80
--- NOTE | 2018-11-09 16:51 | NUR ---
PT GIVEN DISCHARGE INSTRUCTIONS. PT TO BE TRANSFERED TO [facility] TO CONTINUE IV ANTBIOTICS AND PHYSICAL THERAPY. PT ENCOURAGED TO CONTINUE HOME MEDICATION PRESCRIBED. PT DENIES ANY PAIN, SOB, OR N/V AT THIS TIME. IV TO RW SALINE LOCKED. NO REDNESS OR SWELLING NOTED. ALL QUESTIONS AND CONCERNS ADDRESSED. TELE#28 RETURNED TO TWINE WINDER JESUS. FAMILY AT BEDSIDE. PT TAKEN OFF FLOOR VIA [facility].
--- NOTE | 2018-11-10 07:41 | NUR ---
ECHOCARDIOGRAM NOT DONE-DISCHARGED
== END 2018-11-09 16:54 | DRG 871 ==
LOC: ED 20:33 → DU 23:10
PROVIDERS: Emergency Medicine; ADMIT Family Medicine
PROC: 5A2204Z Restoration of Cardiac Rhythm, Single (ICD-10-PCS; principal; 2018-11-04)
PROC: 0D2DXUZ Change Feeding Device in Lower Intestinal Tract, External Approach (ICD-10-PCS; 2018-11-05)
DX: A41.9 Sepsis, unspecified organism (principal); E43 Unspecified severe protein-calorie malnutrition; E87.1 Hypo-osmolality and hyponatremia; Z68.1 Body mass index [BMI] 19.9 or less, adult; I47.1 Supraventricular tachycardia; C16.2 Malignant neoplasm of body of stomach; K94.13 Enterostomy malfunction; E87.5 Hyperkalemia; Z87.891 Personal history of nicotine dependence; Z85.46 Personal history of malignant neoplasm of prostate
CPT/HCPCS: 43760; G0378; J0153; J1200; J1610; J2020; J2185; J2250; J2310; J2405; J2543; J3010; J3475; J3490; J7030; J8597; Q0092; Q9967

== ENCOUNTER 2018-12-27 19:35 | Inpatient (IN) | payer MEDICARE, OTHER ==
[~2018-12-27] VITALS: Ht 170.2 cm; Wt 46.8 kg
[~2018-12-27 19:35] MED LIST changes: +AMBIEN10 MG PO; +BACTRIM DS1 TAB PO; +DULCOLAX10 M1; +FLEET ENEMA135 ML; +GLYCOPYRROLATE1 M1 PO; +GOOD NEIGH1200 MG/15 GT; +MERREM IV1 GM INJ; +NOVAPLUS ZYVO2 MG/ML IV; +[UNRECOGNIZED DRUG - OTHER]
--- NOTE | 2018-12-27 19:42 | NUR ---
PATIENT BIBA EMS. PER MEDIC PATIENT FAMILY CALLED EMS DUE TO PATIENTS INCREASING SOB. PATIENT O2 SAT READING 96% ON ROOM AIR PER EMS. BREATHING APPEARS EVEN AND TACHYPNIC WITH RR 25. LS: CLEAR TO BUL. PATIENT HAS AUDIBLE CONGESTION WITH PRODUCTIVE COUGH NOTED. CLEAR SPUTUM PRODUCTION. O2 SAT READING 93% ON ROOM AIR. C/O SOB SINCE YESTERDAY. FAMILY TO COME TO BEDSIDE PER MEDIC. AWAITING MSE.
[2018-12-27 20:37] LABS: BASOPHIL % 0.1 % (0-2)
[2018-12-27 20:39] LABS: PLATELET COUNT 443 x10^3mcL (130-400); RED CELL DISTRIBUTION WIDTH 17.6 % (11.5-14.5)
--- NOTE | 2018-12-27 20:39 | NUR ---
PATIENT CM CHANGE. PATIENT NOTED TO NOW BE IN AFIB WITH RATE RANGING FROM 105-160. PER SON AND PATIENT NO HX OF CARDIAC ARRYTHMIAS. DR GRULLON NOTIFIED.
[2018-12-27 20:48] LABS: CALCIUM 8.1 mg/dL (8.5-10.1); CARBON DIOXIDE 35.1 mmol/L (21-32); CHLORIDE SERUM 101 mmol/L (98-107); CREATININE SERUM 0.5 mg/dL (0.7-1.3); GLUCOSE SERUM 97 mg/dL (74-106); SODIUM SERUM 136 mmol/L (136-145)
--- NOTE | 2018-12-27 20:58 | NUR ---
PATIENT PROVIDED URINE SAMPLE AT THIS TIME.
[2018-12-27 21:06] LABS: ALBUMIN 1.5 g/dL (3.4-5.0); ALKALINE PHOSPHATASE 110 U/L (46-116); ALT/SGPT 31 U/L (16-63); AST/SGOT 30 U/L (15-37); BILIRUBIN TOTAL 0.16 mg/dL (0.20-1.00); C REACTIVE PROTEIN 11.8 mg/dL (<=0.9); TOTAL PROTEIN, SERUM 6.6 g/dL (6.4-8.2)
[2018-12-27 21:07] LABS: microscopic required? NO
[2018-12-27 21:17] LABS: urine erythrocyte NEGATIVE (NEGATIVE)
--- NOTE | 2018-12-27 21:19 | NUR ---
DR GRULLON NOTIFIED OF PATIENTS CM READING ST 102. BP IMPROVING WITH FLUID BOLUS INFUSING. CARDIZEM IVP TO BE HELD AT THIS TIME.
[2018-12-27 21:20] LABS: ERYTHROCYTE SED RATE 60 mm/hr (0-20)
[2018-12-27 21:25] LABS: T3 TOTAL 0.92 ng/mL
[2018-12-27 21:31] LABS: FREE T4 1.16 ng/dL (0.76-1.46); FREE THYROXINE INDEX 2.1 ug/dL (1.4-4.5); T4(THYROXINE) 5.8 ug/dL (4.7-13.3)
[2018-12-27 21:38] LABS: CK-MB 0.7 ng/mL (0-3.6)
--- NOTE | 2018-12-27 21:57 | NUR ---
PATIENT C/O NAUSEA. REQUESTING ZOFRAN. WILL NOTIFY DR GRULLON.
[2018-12-27] MEDS ORDERED: GLYCOPYRROLATE1 M1 GT (22:08)
[2018-12-27] MEDS ORDERED: AMBIEN10 MG GT (22:09)
[2018-12-27] MEDS ORDERED: ZOF4 GT (22:10)
--- NOTE | 2018-12-27 23:33 | NUR ---
REPORT CALLED AND GIVEN TO NICK ESCOBAR ON [facility]ST.
[2018-12-28 00:12] VITALS: BP 132/72
--- NOTE | 2018-12-28 00:17 | NUR ---
RECEIVED PT FROM ED VIA MARCIO. ORIENTED PT TO ROOM AND SURROUNDINGS. IV NOTED TO LFA PATENT AND INTACT. TELE 24 PLACED ON PT READING STA. INSTRUCTED PT ON THE USE OF CALL LIGHT FOR ASSISTANCE. ENDORSED PT TO PRIMARY NURSE SHAWN
[2018-12-28 01:06] LABS: CHOLESTEROL/HDL RATIO 2.5
--- NOTE | 2018-12-28 01:49 | NUR ---
PT C/O INSOMNIA. MEDICATED VIA JTUBE PER EMAR. LESS THAN 5ML RESIDUAL FLUIDS NOTED. PT TOLERATED WELL. NO ACUTE DISTRESS NOTED. EVEN AND UNLABORED RESPIRATIONS ON RA. ON TELE# [address] 101. IV PATENT AND INTACT RUNNING FLUIDS PER EMAR. OPTIFOAM PLACED ON PT SACRAL AREA. WILL REPOSITION PRN. BED IN LOWEST POSITION. SIDE RAILS UPX2. CALL LIGHT WITHIN REACH. WILL CONTINUE TO MONITOR.
[2018-12-28 03:00] VITALS: BP 120/74
--- NOTE | 2018-12-28 03:25 | NUR ---
MADE AWARE BY MT, HEART RATE SUSTAINED AT 150-160 BPM FOR 26 SECS THEN IN/OUT FOR TWO MORE EPIDOSES OF LESS THAN 5 SECS. PT FOUND ASLEEP IN BED, EASILY AROUSABLE. PT WAS COUGHING. HEART MONITOR READING ST 106 AT THIS TIME. MADE AWARE. WILL CONTINUE TO MONITOR.
[2018-12-28 05:32] VITALS: BP 120/74
--- NOTE | 2018-12-28 06:33 | NUR ---
PT SLEPT IN INTERVALS THROUGHOUT THE SHIFT. EVEN AND UNLABORED RESPIRATIONS ON RA. ON TELE# [address] 106 WITH HR ELEVATED TO 150-160'S. PT DENIES ANY CHEST PAIN/PRESSURE DURING ELEVATED HR. IV PATENT AND INTACT RUNNING ANTIBIOTICS PER EMAR, WILL SALINE LOCK ONCE COMPLETE. ALL NEEDS TENDED TO AND MET. SCHEDULED MEDICATIONS GIVEN. J-TUBE PATENT AND INTACT. PORTACATH TO RIGHT CHEST WALL INTACT. OPTIFOAM ON SACRAL AREA, CDI. BED IN LOWEST POSITION. SIDE RAILS UPX2. CALL LIGHT WITHIN REACH. WILL ENDORSE TO ONCOMING SHIFT.
[2018-12-28 07:12] LABS: BASOPHIL % 0.4 % (0-2)
[2018-12-28 07:33] LABS: PLATELET COUNT 412 x10^3mcL (130-400); RED CELL DISTRIBUTION WIDTH 17.4 % (11.5-14.5)
--- NOTE | 2018-12-28 07:40 | NUR ---
RECEIVED PT IN BED A/A/OX4 DENIES AVELAR. RESP EVEN AND UNLABORED WITH CLEAR BS BILAT. DENIES ANY CP/PRESSURE AT THIS TIME. ST ON TELE WITH IN+OUT OF SVT IN 106-170S. NO EDEMA NOTED IV TO LFA. ABD SOFT, NONTENDER WITH ACTIVE BS X4. DENIES ANY N/V AT THIS TIME. REPORTS FREQUENT EPISODES OF N/V. JT IN PLACE FOR FEEDING CURRENTLY NO ORDERS. PT DOES NOT TAKE ANYTHING BY MOUTH D/T BLOCKAGE FROM GASTRIC CA. NO RESIDUAL NOTED. VOIDING FREELY WITH OCC STRESS INCONTINENCE. NOTED WITH NONBLACHABLE REDNESS TO COCCYX AND ECCHYMOSIS TO BUE. WITH ERRYTHEMA TO JT SITE WITH YELLOWISH DRAINAGE. GEN WEAKNESS, ABLE TO REPOSITION SELF IN BED. CALL LIGHT IN REACH NEEDS ATTENDED TO.
--- NOTE | 2018-12-28 08:50 | NUR ---
MADE AWARE BY STAMP MAKER PT IN AND OUT OF SVT IN 160S. MADE AWARE PT HAS BEEN HAVING THIS RHYTHM SINCE CPA TAX. WILL NOTIFY MD AND TO CALL IF RHYTHM BECOMES SUSTAINED. PAGE GATE SENT TO .
--- NOTE | 2018-12-28 09:15 | NUR ---
PT C/O NAUSEA MEDICATED WITH ZOFRAN 4MG IVP PER EMAR. CALL LIGHT IN REACH NEEDS ATTENDED TO.
[2018-12-28 09:38] VITALS: BP 109/80
--- NOTE | 2018-12-28 10:00 | NUR ---
PT C/O PAIN 01/09 TO RT SIDE OF ABD MEDICATED WITH MORPHINE IVP PER EMAR. CALL LIGHT IN REACH NEEDS ATTENDED TO. SON AT BEDSIDE.
--- NOTE | 2018-12-28 10:20 | NUR ---
DR. RAMIREZ AND DR. HYATT AT BEDSIDE FOR AM ROUNDS UPDATED PT AND FAMILY ON POC. WITH ORDER FOR CT ABD, D/T C/O ABS PAIN BY PT. DISCUSSED WITH DR. HYATT THAT PT'S HR HAS BEEN FLUCTUATING ALL MURNING FROM ST LOW 100S, THEN SVT UP TO 160-180. MADE AWARE PT RECEIVED CARDIZEM IN ED CURRENTLY NOT ON ANY MEDS. AWAITING FURTHER ORDERS.
--- NOTE | 2018-12-28 11:00 | NUR ---
DR. RAMIREZ WAS IN SPEAKING WITH SON AND PT AT [facility]. SON AND PT AGREED TO SPEAK WITH VENEER STAPLER. MD STATED HE WANTED FEEDING TO BE STARTED AFTER CT ABD RESULTS WERE KNOWN JUST IN CASE PT HAS OBSTRUCTIONS.
--- NOTE | 2018-12-28 11:50 | NUR ---
PT GIVE 1X DOSE OF CARDIZEM IVP ORDERED FOR TACHYCARDIA. HR 147 AT TIME OF PUSH. 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 POST IVP NOTED HR DOWN TO 110-106. PT DENIED ANY DISCOMFORT.
--- NOTE | 2018-12-28 16:06 | NUR ---
FEEDING REMAINS ON HOLD CT COMPLETED EARLIER TODAY AWAITING READING FROM RADILOGIST.
[2018-12-28 16:55] VITALS: BP 97/58
--- NOTE | 2018-12-28 16:57 | NUR ---
RECEIVED CRITICAL CT ABD RESULTS. CALLED INTO DR. GONZALEZ. MADE AWARE THAT DR. RAMIREZ HAD HELD FEEDING UNTIL RESULTS WHERE KNOW AND SINCE PT HAS PARTIAL SBO ASKED IF FEEDING SHOULD BE HELD OR STARTED. PER CONT TO HOLD FOR NOW UNTIL FURTHER ORDERS. MD TO REVIEW CT RESULTS.
--- NOTE | 2018-12-28 17:35 | NUR ---
DR. GONZALEZ SPOLE WITH PT AND UPDATED THEM ON CONDITION INCLUDING CT ABD RESULTS PER PT. MADE AWARE THAT HE WILL REMAIN NPO AND WILL HAVE TO HAVE FLUID REMOVED FORM LUNG TOMORROW. CONT TO MONITOR.
--- NOTE | 2018-12-28 18:44 | NUR ---
PT RESTING AT THIS TIME. HAD PLEURAL EFFUSION EVAL COMPLETED. PT HAD SOME SOB AFTER PROCEDURE BUT RECOVERED QUICKLY. PT'S HAS BEEN AT BEDSIDE. DENIES ANY PAIN/DISCOMFORT AT THIS TIME. CALL LIGHT IN REACH NEEDS ATTENDED TO.
--- NOTE | 2018-12-28 19:50 | NUR ---
PT. AWAKE, ALERT, SITTING UP IN BED. FAMILY AT BEDSIDE. ORIENTED X4. DENIES HEADACHE OR DIZZINESS. BREATH SOUNDS DIMINISHED KEM. RESP. EVEN, UNLABORED. NO SOB NOTED AT THIS TIME. PT. WITH PRODUCTIVE COUGH NOTED. ABD. SOFT AND FLAT, BOWEL SOUNDS ACTIVE. CHAS TUBE CLAMPED. DRSG SURROUNDING SITE CLEAN AND DRY. NO DRAINAGE NOTED AT THIS TIME. IVF INFUSING WELL, SITE INTACT. NO EDEMA NOTED TO EXTREMITIES. SCATTERED ECCYMOSIS TO BUE AND BLE. COCCYX AREA W/ SOME REDENESS, INTACT. CALL LIGHT WITHIN REACH.
[2018-12-28 20:42] VITALS: BP 98/62
--- NOTE | 2018-12-28 21:04 | NUR ---
PT.'S SON WAITING TO SPEAK WITH THE NURSE RESEARCHER REGARDING THEIR FATHER. DR. CHOI PAGED THREE TIMES THUS FAR SINCE 1949. CHARGE NURSE WAS FINALLY ABLE TO SPEAK WITH RESIDENT AND HE WILL SPEAK WITH FAMILY PER CHARGE NURSE. FAMILY MADE AWARE. THEY ARE WAITING IN PATIENTS' ROOM.
--- NOTE | 2018-12-28 23:28 | NUR ---
LATE ENTRY: 2131: DR. CHOI SPOKE WITH PT.'S FAMILY. FAMILY STATED THAT THEY WERE SATISFIED. ALL CONCERNS ADDRESSED.
--- NOTE | 2018-12-29 00:45 | NUR ---
PT. RESTING QUIETLY, EYES CLOSED, APPEARS TO BE SLEEPING. CALL LIGHT WITHIN REACH.
[2018-12-29 05:39] VITALS: BP 139/84
--- NOTE | 2018-12-29 06:39 | NUR ---
PT. AWAKE, SITTING UP IN BED. IVF INFUSING WELL, SITE REMAINS INTACT. J-TUBE IN-SITU. J-TUBE FLUSHED WELL AND CLEAR THROUGHOUT NIGHT. PT. NSR ON TELE. CALL LIGHT WITHIN REACH. WILL ENDORSE PT. CARE TO INCOMING NURSE
[2018-12-29 06:57] LABS: CALCIUM 8.5 mg/dL (8.5-10.1); CHLORIDE SERUM 105 mmol/L (98-107); CREATININE SERUM 0.5 mg/dL (0.7-1.3); GLUCOSE SERUM 63 mg/dL (74-106); POTASSIUM SERUM 4.1 mmol/L (3.5-5.1); SODIUM SERUM 141 mmol/L (136-145)
[2018-12-29 07:04] LABS: BASOPHIL % 0.2 % (0-2)
[2018-12-29 07:23] LABS: PLATELET COUNT 453 x10^3mcL (130-400); RED CELL DISTRIBUTION WIDTH 17.7 % (11.5-14.5)
--- NOTE | 2018-12-29 07:50 | NUR ---
RECEIVED PT IN BED A/A/OX4 DENIES AVELAR. RESP EVEN AND UNLABORED WITH DIMINISHED BS TO BILAT BASES. ON RA AND RT PROTOCOL. PRODUCTIVE COUGH. NSR ON TELE WITH OCC RUNS OF ST/SVT MUCH LESS FREQUENT THAN YESTERDAY PER TELE MONITOR. CURRENTLY HR IN 80S-90S. DENIES ANY CP/PRESSURE AT THIS TIME. NO EDEMA NOTED WITH IVF TO LFA. PT HAS SERENA CATH TO RT CHEST NOT ACCESS. ABD SOFT, NONTENDER WITH ACTIVE BS X4. DENIES ANY N/V AT THIS TIME. REPORTS DECREASE IN EPISODES OF N/V. JT IN PLACE WITH NO RESIDUAL, NPO EXCEPT MEDS AT THIS TIME. VOIDING FREELY. GEN WEAKNESS, ABLE TO REPOSITION SELF IN BED. CALL LIGHT IN REACH NEEDS ATTENDED TO.
[2018-12-29 08:13] VITALS: BP 117/60
--- NOTE | 2018-12-29 10:47 | NUR ---
DR. MARTINEZ AND MEDCIAL TEAM IN TO EVALUATE PT FOR AM ROUNDS, POC DISCUSSED WITH PT.
--- NOTE | 2018-12-29 11:33 | NUR ---
HOSPICE NURSE AND TYRON AT BEDSIDE SPEAKING WITH PT AND SON. REGARDING SERVICES.
--- NOTE | 2018-12-29 15:00 | NUR ---
NOTED DIET ORDER TO START TF JEVITY 1.2 AT 65M/HR WITH H2O FLUSH OF 20ML Q4H. CHECK JT FEEDING RESIDUAL NONE PRESENT AND STARTED JEVITY AT 20ML/HR WILL ADVANCE TOLERATED SINCE PT HAS BEEN NPO FOR 2 DAYS AND HAD EPISODES OF N/V OFF AND ON. PROVIDED PERICARE AND REPLACED OPTIFOAM TO COCCYX AREA. CALL LIGHT IN REACH FAMILY REMAINS AT BEDSIDE.
--- NOTE | 2018-12-29 15:30 | NUR ---
DR. PAZ AT BEDSIDE TO EVAL PT. DISCUSSED WITH CT ABD RESULTS. 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 PT DOES NOT REQUIRED ANY TYPE OF ISOLATION FOR THAT. PT MADE AWARE PT SIGNED ON WITH HOSPICE CARE. NO FURTHER ORDERS.
--- NOTE | 2018-12-29 18:08 | NUR ---
PT RESTING COMFORTABLY AT THIS TIME. DENIES ANY DISCOMFORT, TOLERATING JT FEEDING WITH NO RESIDUAL AT CURRENT RATE OF 20ML/HR. AT BEDSIDE. CALL LIGHT IN REACH NEEDS ATTENDED TO.
--- NOTE | 2018-12-29 20:00 | NUR ---
PT. AWAKE, ALERT, SITTING UP IN BED W/ FAMILY AT BEDSIDE. ORIENTED X4. DENIES HEADACHE OR DIZZINESS. BREATH SOUNDS DIMINSHED KEM. RESP. EVEN, UNLABORED. PT. ON RA. NO SOB NOTED. SINUS TACH ON TELE 24. DENIES CHESTPAIN OR DISCOMFORT. PEDAL PULSES MODERATE. COCCYX AREA W/ REDNESS, OPTIFORM IN PLACE. SCATTERED ECCYMOSIS TO BUE AND BLE. IVF INFUSING WELL, SITE INTACT. J-TUBE IN-SITU, TUBE FEEDING TOLERATE. RATE OF 30CC/HR. NO RESIDUAL NOTED. ABD. SOFT AND FLAT. BOWEL SOUNDS ACTIVE. CALL LIGHT WITHIN REACH.
[2018-12-29 21:24] VITALS: BP 133/71
--- NOTE | 2018-12-30 00:56 | NUR ---
PT. RESTING QUIETLY. EYES CLOSED. APPEARS TO BE SLEEPING. TOLERATING TUBE FEEDING THUS FAR. NO RESIDUAL NOTED. ST ON MONITOR. CALL LIGHT WITHIN REACH.
--- NOTE | 2018-12-30 02:59 | NUR ---
PT. C/O NAUSEA. HAVING EPISODES OF VOMITING, WHICH APPEARS TO BE DARK BROWNISH RED IN COLOR. PT.DENIES ANY PAIN AT THIS TIME. DENIES NEED FOR PAIN MEDICATION. PRN ZORFRAN IVP GIVEN ORDERED. PT. CLEANED UP, HOB REMAINS 40 DEGREE ANGLE. NO SOB OR RESP DISTRESS NOTED. TUBE FEEDING TOLERATED, CONTINUES AT 30CC AT THIS TIME.
--- NOTE | 2018-12-30 05:18 | NUR ---
PT. DOZING INTERMITENTLY, NO FURTHER VOMITING NOTED. WILL CONTINUE TO MONITOR
[2018-12-30 05:58] VITALS: BP 155/83
--- NOTE | 2018-12-30 06:20 | NUR ---
PT. DRY HEAVING AND FEELING NAUSEOUS, VOMITING. PT. STATED THAT HE FEELS THOUGH HIS FOOD, TF, IS MAKING HIM FEEL MORE SICK TO HIS STOMACH. PRN PHENERGAN IVP GIVEN ORDERED. TUBE FEEDING TURNED OFF AT THIS POINT. WILL NOTIFY .
[2018-12-30 06:41] LABS: CALCIUM 8.2 mg/dL (8.5-10.1); CARBON DIOXIDE 26.7 mmol/L (21-32); CHLORIDE SERUM 105 mmol/L (98-107); CREATININE SERUM 0.5 mg/dL (0.7-1.3); GLUCOSE SERUM 164 mg/dL (74-106); POTASSIUM SERUM 3.5 mmol/L (3.5-5.1); SODIUM SERUM 140 mmol/L (136-145)
[2018-12-30 07:01] LABS: BASOPHIL % 0.1 % (0-2)
--- NOTE | 2018-12-30 07:30 | NUR ---
PT ENORSE TO ME THIS MORNING. SITTING UP IN BED. AA/O X4 / MALDIVIAN SPK. TELE 24 ST NOTED, HR 104 DENIE ANY CP OR PRESSURE. 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 BREATHING EVEN AND UNLABORED ON RA, LUNDS DIM. NO ACUTE RESP DISTRESS OR SOB NOTED. FOUND PT OFF J TUBE DUE TO N/V, IS MEDICATED PER EMAR. BOWEL SOUNDS ACTIVE IN ALL FOUR QUADS, VOIDS USING URINAL AT BEDSIDE.GEN WEAKNESS/ IS ABLE TO RESPOSTION SELF/ KNOWS TO CALL FOR ASSIST, WHEEL CHAIR AT HOME. BUE DISCOLORATION NOTED. OPTIFORM TO COCCYX AREA DUE TO REDNESS. IV TO THE LFA INFUSING AT 100ML/HR, NO REDNESS OR SWELLING NOTED.WILL CONTINUE TO MONITOR.
[2018-12-30 07:34] LABS: PLATELET COUNT 454 x10^3mcL (130-400); RED CELL DISTRIBUTION WIDTH 17.5 % (11.5-14.5)
--- NOTE | 2018-12-30 10:53 | NUR ---
RESIDUAL FELT UPON FLUSHING. DR. HYATT AND MEDICAL TEAM AWARE. J TUBE IS OFF AT THIS TIME AWAITING GI CONSULT. WILL CONTINUE TO MONITOR.
--- NOTE | 2018-12-30 11:24 | NUR ---
DR. LINTON AT BEDSIDE, UNCLOGGED J-TUBE. FEEDING RESUMED AT 65ML/HR, FLUSH H20 EVERY 4 HR AT 20ML/HR. DENIES ANY N/V NOTED/ MEDICATED PER EMAR. WILL CONTINUE TO MONITOR.
[2018-12-30 13:07] VITALS: BP 132/82
--- NOTE | 2018-12-30 14:27 | NUR ---
Initial Nutrition Assessment: 235/A FERMIN KHAN IA HR Dx: Acute respiratory distress, interstitial PNA PMHx: Gastric cancer, Prostate cancer s/p radiation currently in remission PSHx: Hernia Repair Labs: BG 164H, CREAT 0.5L, WBC 15.6H Meds: Lopressor, norco, phenegran, Zofran, zosyn Diet: TF (Jejunistomy) @ 65ml/hr, FWF 20cc Q4H PO Intake: NPO Ht: 170.18 cm (67") Wt: 46.8 kg (103#) BMI: 16.2 kg/m2 (underweight) Bed scale: 118# (possible error) IBW: 148# (67 kg) %IBW: 69 UBW: 97# Age: 78/M Food Allergies: NKFA Skin: BLE discoloration Eron: 14 Edema: none GI: J-tube Last BM: 12/28 Per H&P, Pt is a 78 Yo male with PMH of gastric cancer diagnosed in January 2018 status post chemotherapy and prostate cancer, status post radiation, in remission was brought to the ED by his son for shortness of breath which started today with cough and yellow phlegm. RDN Visit (12/30): Patient looked extremely malnourished and emaciated. Patient's son was at bedside. TF Jevity 1.2 was running @ 65 ml/hr, FWF 20cc Q4H. Discussed recommendations with Dr. Santos. FWF will be increased from 200cc Q4H to 50cc Q4H if other IV fluids are to be D/C'ed, Problem with: N/V/D/C: Nausea and vomiting this morning Problems with: Chewing/Swallowing: yes, G-tube dependent Current appetite: unable to access Recent wt change: lost weight over last 1 year %wt change: N/A Vitamin/Supplement use: none Special diet at home: G-tube dependent Physical activity: none Nutrition education given: not appropriate at this time. Patient's son had questions about tube feeding ate and water flushes. Questions were answered. Food-drug interactions: none Education given: no Estimated Nutritional Needs Based on current body weight 46.8 kg Energy: 8700-7675 kcal/d (35-40 kcal/kg) Protein: 56-70 g/d (1.2-1.5 g/kg) - malnourished Fluid: 5324-4215 ml/d (1 ml/kcal) or per doctor Nutrition Diagnosis 1. 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 Intervention 1. Recommend continuing Jevity 1.2 @ 65 ml. FWF 50 ml Q4H. This will provide 1870 kcal and 86g protein. This will meet 100% estimated calorie and protein needs. Monitor/Evaluate Goal: PO intake at least 75% of estimated needs Monitor: PO intake, Labs, GI function F/U in 2-3 days as high risk /2-3
--- NOTE | 2018-12-30 14:45 | NUR ---
PT C/O OF N/V, MEDICATED PER EMAR. STOP J-TUBE FEEDING, AWARE, PT IS CURRENTLY AT 40 DEG. WILL CONTINUE TO MONITOR. FAMILY AT BEDSIDE.
--- NOTE | 2018-12-30 14:54 | NUR ---
RT AT BEDSIDE, SATING AT 85 % PT NOW ON 2.5 L NS SATING AT 94 % WILL CONTINUE TO MONITOR.
[2018-12-30 16:13] VITALS: BP 133/73
--- NOTE | 2018-12-30 18:12 | NUR ---
PT REMAINS ON 2.5 L NC SATING AT 94-96% NO ACUTE RESP DISTRESS OR SOB NOTED. J-TUBE REMAINS ON HOLD PER DR. HYATT ORDERS/ PENDING CXR. MILIND RIGGS STATED THERE IS X3 ER PATIENTS AHEAD. FAMILY AT BEDSIDE. WILL CONTINUE TO MONITOR.
--- NOTE | 2018-12-30 18:40 | NUR ---
NO ACUTE CHANGES, NO ACUTE RESP DISTRESS OR SOB NOTED, WILL ENDORSE TO INCOMING RN.
--- NOTE | 2018-12-30 19:20 | NUR ---
RECIEVED PT IN NO ACUTE DISTRESS. TELE #24, ST, HR 115. AOX4. LUNGS DIMINISHED/MILD WHEEZING BILATERAL ON NC @ 2.5 L. BOWEL SOUNDS HYPOACTIVE. GTUBE IN PLACE TO LLQ. TUBE FEEDING CURRENTLY ON HOLD, PENDING CXR RESULTS. ON AIR MATTRESS. HOB ELEVATED 45 DEGREES. C/O MILD NAUSEA. DENIES PAIN. IV TO LFA, PATENT. BED IN LOWEST POSITION, 2 SIDE RAILS UP,CALL LIGHT IN REACH. INSTRUCTED TO CALL FOR ASSISTANCE.
[2018-12-30 19:23] VITALS: BP 139/91
--- NOTE | 2018-12-31 00:11 | NUR ---
ENDORSED CARE TO HUSSAIN ROMERO.
--- NOTE | 2018-12-31 00:45 | NUR ---
RECEIVED PATIENT FROM REJI ROMERO FOR CONTINUATION OF CARE. PATIENT RESTING IN BED. RESPIRATION EVEN AND UNLABORED, ON O2 2.5 L PER NASAL CANNULA. DENIES DISCOMFORT/PAIN AT THIS TIME. IV SITE TO LEFT ARM PATENT AND INTACT. ON CONTACT ISOLATION FOR MRSA OF NARES. WILL CONTINUE TO MONITOR.
--- NOTE | 2018-12-31 04:22 | NUR ---
PATIENT NAUSEATED AND VOMITING. PHENERGAN 12.5 MG IVP GIVEN ORDERED. WILL CONTINUE TO MONITOR.
[2018-12-31 04:54] VITALS: BP 135/89
--- NOTE | 2018-12-31 06:19 | NUR ---
PATIENT RESTING IN BED, RESPIRATION EVEN AND UNLABORED, ON ROOM AIR. NO COMPLAIN OF PAIN AND DISCOMFORT. IV SITE NO SIGN OF INFILTRATION. RESUMED TUBE FEEDING- JEVITY AT 10 ML/HR WILL INCREASES TOLERATED. ASSISTED WITH NEEDS. SAFETY OBSERVED. PLACED BED IN THE LOWEST POSITION. PLACED CALL LIGHT WITHIN REACH AT ALL TIMES. ON CONTACT ISOLATION FOR MRSA NARES. FAMILY MEMBER AT THE BEDSIDE.
[2018-12-31 07:16] LABS: CALCIUM 8.1 mg/dL (8.5-10.1); CARBON DIOXIDE 29.4 mmol/L (21-32); CHLORIDE SERUM 107 mmol/L (98-107); CREATININE SERUM 0.5 mg/dL (0.7-1.3); GLUCOSE SERUM 120 mg/dL (74-106); POTASSIUM SERUM 3.5 mmol/L (3.5-5.1); SODIUM SERUM 142 mmol/L (136-145)
[2018-12-31 07:22] LABS: BASOPHIL % 0.1 % (0-2); PLATELET COUNT 430 x10^3mcL (130-400); RED CELL DISTRIBUTION WIDTH 17.4 % (11.5-14.5)
--- NOTE | 2018-12-31 07:31 | NUR ---
HANDOFF REPORT RECEIVED FROM NICK NIXON. PATIENT AWAKE AND NOT IN ANY DISTRESS. O2 AT 2.5LPM VIA NC IN USE. JEVITY FEEDING AT 10CC/HR WITH WATER 100CCQ 4H SETTING VIA PEG TUBE. HOB INCREASED TO 40 DEGREES AND PATIENT TURNED TO RIGHT SIDE. SON FERMIN AT BEDSIDE. INSTRUCTED TO CALL RN FOR ASSIST. BED LOW AND LOCKED. ALARM ON.
--- NOTE | 2018-12-31 08:12 | NUR ---
NOTED IV SITE LEAKING. IV ACCESS DISCONTINUED AND WILL RESTART. NAUSEOUS. PEG TUBE ZERO RESIDUAL. FEEDING HELD FOR NOW TILL MD IS AWARE. ABDOMEN FLAT SOFT ACTIVE BS.
[2018-12-31 09:06] VITALS: BP 150/83
--- NOTE | 2018-12-31 11:34 | NUR ---
MD Aiden ROMERO MADE AWARE OF PATIENTS NAUSEA AND VOMITING, THAT FEEDING IS ON HOLD AND THAT SON WANTS HER TO GET IVF. PATIENT RESTING. NOT IN ANY DISTRESS.
--- NOTE | 2018-12-31 13:04 | NUR ---
JEVITY FEEDING RESUMED AT 20CC/HR. NO RESIDUAL. ZOFRAN 4MG IVP GIVEN FOR NAUSEA. TURNED AND REPOSITIONED. AT BEDSIDE.
[2018-12-31 13:24] VITALS: BP 106/70
--- NOTE | 2018-12-31 16:01 | NUR ---
PATIENT SEEN BY MD BARRIENTOS AND VIRIDIANA WITH SON PRESENT. PER MD BARRIENTOS OK TO YSE PATIENTS OWN ISOSOURCE HN.
[2018-12-31 17:43] VITALS: BP 105/67
--- NOTE | 2018-12-31 18:24 | NUR ---
TOLERATING ISOSOURCE FEEDING (FROM HOME). NO RESIDUAL. TURNED AND REPOSITIONED TO LEFT SIDE. HOB UP TO 45 DEGRESS. SON AND AT BEDSIDE.
--- NOTE | 2018-12-31 19:20 | NUR ---
RECIEVED PT IN NO ACUTE DISTRESS. TELE #24, ST, HR 111. AOX4. FINE CRACKLES TO BILAT BASES ON NC @ 2.5 L. BREATHING E/U. BOWEL SOUNDS HYPOACTIVE. GTUBE IN PLACE TO LLQ. TUBE FEEDING INFUSING @ 20 ML/HR WITH FWF 100ML Q4H. RESIDUAL <30 ML. ON AIR MATTRESS. HOB ELEVATED 45 DEGREES. DENIES NAUSEA. DENIES PAIN. IV TO LFA, PATENT. CONTACT PRECAUTIONS MAINTAINED. BED IN LOWEST POSITION, 2 SIDE RAILS UP, CALL LIGHT IN REACH. INSTRUCTED TO CALL FOR ASSISTANCE.
[2018-12-31 20:51] VITALS: BP 115/64
[2018-12-31 21:39] VITALS: Ht 170.2 cm; Wt 46.8 kg
--- NOTE | 2019-01-01 00:30 | NUR ---
RESTING IN BED WITH EYES CLOSED. BREATHING E/U. NO ACUTE DISTRESS NOTED. WILL CONTINUE TO MONITOR.
[2019-01-01 05:41] VITALS: BP 129/70
--- NOTE | 2019-01-01 06:32 | NUR ---
NO C/O SOB OVERNIGHT. TOLERATING TUBE FEEDING. NO ACUTE DISTRESS NOTED. SON AT BEDSIDE. WILL ENDORSE TO ONCOMING RN.
[2019-01-01 07:08] LABS: CALCIUM 7.6 mg/dL (8.5-10.1); CARBON DIOXIDE 36.2 mmol/L (21-32); CHLORIDE SERUM 107 mmol/L (98-107); CREATININE SERUM 0.4 mg/dL (0.7-1.3); GLUCOSE SERUM 98 mg/dL (74-106); POTASSIUM SERUM 3.3 mmol/L (3.5-5.1); SODIUM SERUM 143 mmol/L (136-145)
--- NOTE | 2019-01-01 07:30 | NUR ---
RECEIVED PATIENT FROM NIGHT NURSE. AWAKE, ALERT, APPEARS ORIENTED. PATIENT SITTING UPRIGHT IN BED. RESPIRATIONS REGULAR. ON O2 VIA NC AT 2.5L/MIN. RECEIVING CONTINUOUS TUBE FEEDING WITH ISOSOURCE 1.2 AT 20 ML/HR. IV SALINE LOCKED. FAMILY MEMBER AT BEDSIDE AND ATTENTIVE TO PATIENT.
[2019-01-01 08:42] VITALS: BP 107/73
[2019-01-01 08:44] LABS: BASOPHIL % 0.2 % (0-2); PLATELET COUNT 402 x10^3mcL (130-400); RED CELL DISTRIBUTION WIDTH 17.3 % (11.5-14.5)
--- NOTE | 2019-01-01 10:07 | NUR ---
PATIENT C/O MILD ABDOMINAL PAIN. MEDICATED WITH NORCO PER EMAR.
--- NOTE | 2019-01-01 10:50 | NUR ---
DR CALDERA MADE AWARE OF PATIENT'S K OF 3.3
[2019-01-01] MEDS ORDERED: METOPROLOL TART25 M1 PO (11:34)
--- NOTE | 2019-01-01 11:43 | NUR ---
Follow-up Nutrition Assessment: 235/A FERMIN KHAN FU HR Dx: Acute respiratory distress, interstitial PNA PMHx: Gastric cancer, Prostate cancer s/p radiation currently in remission Labs: (01/01) K 3.3L, CA 7.6L, CREAT 0.4L, WBC 11.3H Meds: Ambien, Lopressor, norco, Zofran, zosyn Diet: Jevity 1.2 @ 20 ml/hr, FWF 100cc Q4H (jejunostomy) PO Intake: NPO Weights: (12/28) 26.8 kg, (01/01) Skin: redness to coccyx Eron: 14 I/Os: (12/31) 1330/620 (710) Edema: none GI: PEG tube, isosource 1.2 @ 20 ml/hr Last BM: 12/30 RDN Visit (01/01): Per bed huddles patient will be D/C today with home hospice. Yesterday Dr. Soares informed that patient's family is bringing isoscource 1.2 from home as they think that patient is not tolerating a component in Jevity and that leads to vomiting. Isoscource 1.2 was running @ 20 ml/hr. FWF 100cc Q4H Estimated Nutritional Needs Based on current body weight 46.8 kg Energy: 7507-3577 kcal/d (35-40 kcal/kg) Protein: 56-70 g/d (1.2-1.5 g/kg) - malnourished Fluid: 4722-4567 ml/d (1 ml/kcal) or per doctor Nutrition Diagnosis 1. 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 Intervention 1. Recommend continuing Jevity 1.2 @ 65 ml. FWF 50 ml Q4H. This will provide 1870 kcal and 86g protein. This will meet 100% estimated calorie and protein needs. Monitor/Evaluate Goal: Have pt meet at least 75% of estimated needs Monitor: PO intake, Labs, GI function F/U in 2-3 days as high risk 01/03-
--- NOTE | 2019-01-01 12:48 | NUR ---
AT 1135 - RECEIVED WORD THAT PATIENT WILL BE DISCHARGED HOME WITH HOSPICE. [facility] HAS BEEN SET UP FOR 1230. AT 1255 - CALL PLACED FOR PATIENT'S SON TO NOTIFY HIM OF PLANNED TRANSPORT TIME. PATIENT PREPARED FOR DISCHARGE. DRESSED. IV CATHETER REMOVED INTACT. TAKEN OFF CARDIAC MONITORING. CONTINUOUS PEG TUBE FEEDING DISCONTINUED. AT 1230 - PATIENT'S SON AT BEDSIDE. HE EXPRESSED CONCERN THAT PATIENT WAS COUGHING UP BRIGHT BLOOD. DID NOT WANT TO TAKE PATIENT HOME. CALLED CASE AMNAGER, TIM HAYDEN EXPLAINED SITUATION TO HER.SHE WILL SPEAK WITH HOSPICE. [facility] ARRIVED AND WAS SENT BACK AT THIS TIME. AT 1250 = RECEIVED CALL FROM MARIA E AT [facility]. EXPLAINED SITUATION TO HER. SHE WILL SPEAK WITH [facility]. CONTINUOUS TUBE FEEDING RESUMED PER SONS REQUEST.
[2019-01-01 13:58] VITALS: BP 115/75
--- NOTE | 2019-01-01 15:29 | NUR ---
AT 1345 - DR CALDERA SAW PATIENT AND SPOKE WITH SON. PATIENT MAY STAY IN HOSPITAL TODAY AND TO DC HOME WITH HOSPICE TOMORROW. PATIENT'S SON EXPRESSED CONCERN TO DR THAT PATIENT SHOULD HAVE FLUIDS IV. AT 1400 - NEW IV INITIATED IN LAC BY RESOURCE NURSE. AT 1440 - IV INFUSION OF NS CURRENTLY AT TKO RATE UNTIL NEW ORDER RECEIVED. AT 1530 - RECEIVED CALL FROM LAB WITH PEG TUBE SITE CULTURE RESULT - ENTEROCOCCUS VRE. NOTIFIED DR CALDERA ALSO SPOKE WITH DR CUMMINGS. NO NEW ORDERS AT THIS TIME. DR CUMMINGS WILL CONTACT DR MARTINEZ. PATIENT IS ALREADY ON CONTACT ISOLATION. FAMILY IS AT BEDSIDE AND ATTENTIVE TO PATIENT.
[2019-01-01 17:34] VITALS: BP 110/75
--- NOTE | 2019-01-01 17:52 | NUR ---
PATIENT AWAKE, ALERT AND ORIENTED. FAMILY REMAINS AT BEDSIDE AND ATTENTIVE TO PATIENT NEEDS. NO FURTHER COUGHING OF BLOOD NOTED. IV NOW INFUSING NS AT 50 ML/HR. VSS. AFEBRILE. PEG TUBE FEEDING OF ISOSOURCE 1.2 REMAINS AT 20 ML/HR. APPEARS TO BE TOLERATED WELL. DRESSING TO PEG TUBE SITE REMAINS DRY- HAD BEEN CHANGED EARLIER. NO C/O PAIN. CONTACT ISOLATION MAINTAINED. WILL ENDORSE CARE TO NIGHT NURSE.
[2019-01-01 20:18] VITALS: BP 109/65
--- NOTE | 2019-01-02 00:15 | NUR ---
PT IS RESTING IN BED WITH EYES CLOSED AT THIS TIME. NO ACUTE DISTRESS NOTED. PT HAS BEEN CALM AND COOPERATIVE WITH CARE. SON IS AT THE BEDSIDE. PEG TUBE IN PLACE AND INFUSING ISOSOURCE AT 20ML/HR. IV INFUSING AT 50ML/HR AND IS INTACT. NO S/S OF PAIN NOTED AT THIS TIME. SAFETY AND COMFORT MEASURES MAINTAINED, BED IN LOWEST POSITION, CALL LIGHT WITHIN REACH. WILL CONTINUE TO MONITOR AT THIS TIME.
--- NOTE | 2019-01-02 02:02 | NUR ---
PT COMPLAINING OF VOMITING EPISODE PER THE SONS REPORT. PT GIVEN PRN ZOFRAN, WILL CONTINUE TO MONITOR VOMITING/NAUSEA EPISODES.
--- NOTE | 2019-01-02 05:16 | NUR ---
PT HAS RESTED IN LONG INTERVALS THROGHOUT THE SHIFT. PT HAS BEEN CALM AND COOPERATIVE WITH CARE. NO COMPLAINT OF PAIN AT THIS TIME. TUBE FEEDING IN PLACE, AND INFUSING ISOSOURCE 1.2 AT 20 ML/HR. PT HAS HAD 2 VOMITING EPISODES AND WAS GIVEN PRN ZOFRAN ( SEE MAR). SON IS AT THE BEDSIDE. PT DENIES CHEST PAIN AT THIS TIME. SAFETY AND COMFORT MEASURES MAINTAINED, BED IN LOWEST POSITION, CALL LIGHT WITHIN REACH. WILL ENDORSE CONTINUITY OF CARE TO THE ONCOMING RN.
[2019-01-02 05:31] VITALS: BP 119/63
--- NOTE | 2019-01-02 06:02 | NUR ---
CLARIFIED PT MED SURG ORDERS WITH DR BARBOSA.
--- NOTE | 2019-01-02 06:28 | NUR ---
PER DR BARBOSA PT PUT ON TELE. PT PLACED ON TELE MONITOR #4.
[2019-01-02 06:52] LABS: BASOPHIL % 0.2 % (0-2); PLATELET COUNT 329 x10^3mcL (130-400)
[2019-01-02 06:57] LABS: ALKALINE PHOSPHATASE 79 U/L (46-116); ALT/SGPT 18 U/L (16-63); AST/SGOT 25 U/L (15-37); BILIRUBIN TOTAL 0.18 mg/dL (0.20-1.00); CALCIUM 7.4 mg/dL (8.5-10.1); CARBON DIOXIDE 33.1 mmol/L (21-32); CHLORIDE SERUM 106 mmol/L (98-107); CREATININE SERUM 0.4 mg/dL (0.7-1.3); GLUCOSE SERUM 114 mg/dL (74-106); MAGNESIUM 2.1 mg/dL (1.8-2.4); PHOSPHOROUS 2.5 mg/dL (2.5-4.9); POTASSIUM SERUM 3.5 mmol/L (3.5-5.1); SODIUM SERUM 142 mmol/L (136-145)
[2019-01-02 07:04] LABS: ALBUMIN 1.3 g/dL (3.4-5.0); TOTAL PROTEIN, SERUM 5.5 g/dL (6.4-8.2)
[2019-01-02 07:05] LABS: RED CELL DISTRIBUTION WIDTH 17.5 % (11.5-14.5)
--- NOTE | 2019-01-02 07:15 | NUR ---
RECEIVED PT FROM SHIFT NURSE A/OX4. NO ACUTE DISTRESS NOTED. IV INTACT AND PATENT. PEG TUBE IN PLACE AT 20ML. FALL PRECAUTIONS IN PLACE. BED IN LOW POSITION. CALL LIGHT WITHIN REACH. WILL CONTINUE TO MONITOR.
--- NOTE | 2019-01-02 08:10 | NUR ---
PT C/O OF NAUSEA. GAVE ZOFRAN ORDERED. WILL CONTINUE TO MONITOR.
[2019-01-02 09:20] VITALS: BP 102/66
--- NOTE | 2019-01-02 09:24 | NUR ---
PT RESTING IN BED. NO C/O OF NAUSEA. FAMILY MEMBER AT BEDSIDE. CALL LIGHT WITHIN REACH. WILL CONTINUE TO MONITOR.
--- NOTE | 2019-01-02 09:39 | NUR ---
JUANITA FROM [facility] CALLED AND WANTS AN UPDATE ABOUT THE D/C AND TOLD HIM WAITING FOR THE [employer] NAILER ABOUT THE PLAN AND WILL CALL HIM LEFT HIS TEL.[phone].
--- NOTE | 2019-01-02 11:33 | NUR ---
CALLED TO JUANITA FROM [facility] AND MADE AWARE THAT THE PATIENT DISCHARGE BACK HOME ON HOSPICE AND FAMILY AGREE AFTER TALKING TO . PER JUANITA PATIENT WILL BE VEGETABLE FARMER BETWEEN [phone] BY [facility]ENN[facility]ER BUCKLEY AND W/ O2. ANAND RN MADE AWARE.
--- NOTE | 2019-01-02 11:56 | NUR ---
CHANGED GT TUBE DRESSING CDI. WILL CONTINUE TO MONITOR.
[2019-01-02 12:56] VITALS: BP 107/68
--- NOTE | 2019-01-02 13:46 | NUR ---
MADE VOICE OVER ARTIST DESIREAE OF 3 SEC EPISODE OF VTACH. PT ASYMPTOMATIC. WILL CONTINUE TO MONITOR.
--- NOTE | 2019-01-02 14:06 | NUR ---
PT A/OX4 UPON DC. DENIES ANY NAUSEA/VOMITING AT THIS TIME. IV REMOVED AND CATH INTACT. GT TUBE IN PLACE. EDUCATION PROVIDED. PT VERBALIZED UNDERSTANDING. PROVIDED EXTRA SUPPLIES TO FAMILY. PERSONAL BELONGINGS TAKEN HOME. ACCOMPANIED BY [facility] AND FAMILY MEMBERS TO HOME.
== END 2019-01-02 14:05 | disposition hospice, home (50) | DRG 177 ==
LOC: ED 19:35 → DU 22:47
PROVIDERS: Internal Medicine; Specialist; ADMIT General Practice
DX: J69.0 Pneumonitis due to inhalation of food and vomit (principal); E43 Unspecified severe protein-calorie malnutrition; C78.89 Secondary malignant neoplasm of other digestive organs; C78.00 Secondary malignant neoplasm of unspecified lung; C78.6 Secondary malignant neoplasm of retroperitoneum and peritoneum; C78.7 Secondary malignant neoplasm of liver and intrahepatic bile duct; R64 Cachexia; Z68.1 Body mass index [BMI] 19.9 or less, adult; R04.2 Hemoptysis; J90 Pleural effusion, not elsewhere classified; R06.03 Acute respiratory distress; D64.81 Anemia due to antineoplastic chemotherapy; I48.0 Paroxysmal atrial fibrillation; Z85.46 Personal history of malignant neoplasm of prostate; Z92.3 Personal history of irradiation; Z93.4 Other artificial openings of gastrointestinal tract status; Z87.891 Personal history of nicotine dependence; Z79.899 Other long term (current) drug therapy; Z22.322 Carrier or suspected carrier of Methicillin resistant Staphylococcus aureus
CPT/HCPCS: 36600; 83880; 84439; 94150; G0378; J1170; J2270; J2405; J2543; J2550; J3490; J7030; J7050; J7620; J8597; Q0092